=== PATIENT | female | born 1980 | race African-American/Black ===

== ENCOUNTER 2021-12-08 19:32 | Emergency (ER) | payer BC, MEDICAID, SELFPAY ==
--- NOTE | ~2021-12-08 | US_ITS ---
EXAMINATION: US OB <= 14 weeks fetus INDICATION: VB, early preg TECHNIQUE: Sonography of the pelvis was performed by transabdominal techniques. COMPARISON: None. RESULT: Uterus: - Orientation: Anteverted - Size: 11.7 x 8.5 x 6.5 cm - Myometrium: 2.9 cm fibroid. Gestation: - Intrauterine gestational sac: Single present. - Mean Sac Diameter: cm, corresponding gestational age week days - Yolk sac: Present. - Embryo: Single present. - Rake rump length: 0.9 cm, corresponding gestational age 6 weeks, 6 days -Gestational heart rate: present 127 bpm -Subgestational hematoma: Present , measuring 1.3 x 4.3 x 1.7 cm. Right ovary: -Not visualized Left ovary: - Size: 3.3 x 2.6 x 1.8 cm - Normal sonographic appearance with physiologic follicles. Corpus luteal cyst. Pelvis free fluid: None. IMPRESSION: Single, live intrauterine gestation. 1.3 x 4.3 x 1.7 cm subgestational hematoma. Estimated Gestational Age: 6 weeks, 6 days by crown rump length. EYAL by ultrasound 07/28/2022. EYAL by LMP 07/27/2022. Reviewed, dictated and finalized at location K. IMPRESSION: Single, live intrauterine gestation. 1.3 x 4.3 x 1.7 cm subgestational hematoma . Estimated Gestational Age: 6 weeks, 6 days by crown rump length. EYAL by ultras ound 07/28/2022. EYAL by LMP 07/27/2022.
[2021-12-08 19:35] VITALS: BP 150/96; PULSE 92; RESP 18; TEMP 36.8; O2SAT 100
[2021-12-08 20:25] LABS: Basophils Absolute Auto 0.1 K/mm3 (0.0-0.1); Basophils Percent Auto 0.5 % (0.2-1.2); Eosinophils Absolute Auto 0.1 K/mm3 (0-0.3); Eosinophils Percent Auto 0.8 % (0-4.4); Hematocrit 36.5 % (37.0-47.0); Hemoglobin 11.4 g/dL (12.0-15.0); Immature Granulocyte Absolute 0.04 K/mm3 (0.00-0.031); Immature Granulocyte Percent A 0.4 % (0-0.5); Lymphocytes Absolute Auto 3.06 K/mm3 (0.9-3.2); Lymphocytes Percent Auto 33.2 % (18.3-44.2); Mean Corpuscular HGB Conc 31.2 g/dl (32-36); Mean Corpuscular Hemoglobin 27.8 pg (26-34); Mean Platelet Volume 10.5 fl (7.4-10.4); Monocytes Absolute Auto 0.5 K/mm3 (0.1-0.6); Monocytes Percent Auto 5.2 % (2.6-8.5); Neutrophils Absolute Auto 5.5 K/mm3 (1.3-6.7); Neutrophils Percent Auto 59.9 % (45.5-73.1); Platelet Count Result 254 k/mm3 (150-375); White Blood Count 9.2 K/mm3 (4.5-10.0)
--- NOTE | 2021-12-08 21:03 | ED.FEMALEGU ---
HPI - Female Genitourinary General Chief complaint: Vaginal Bleeding Stated complaint: , abd cramping and spotting Time Seen by Provider: 12/08/21 19:54 History of Present Illness HPI Narrative: 41-year-old female presents here at 8 weeks by home test endorsing vaginal spotting, she did also initially have some abdominal pain, this all started about 5 hours ago. She is unsure where her blood type is other than that apparently required special ordering the last time she delivered. Denies any vaginal discharge or concern for STD at this time. Denies any other complaints. Has not seen her SPEAR FISHER or had an ultrasound yet Related Data Allergies Allergy/AdvReac Type Severity Reaction Status Date / Time Penicillins Allergy Intermediate swelling Verified 12/08/21 20:19 of mouth Review of Systems Review of Systems: CONST: No fever. HEENT: No sore throat C/V: No chest pain RESP: No cough GI: Reports abdominal pain now resolved : Vaginal spotting M/S: No joint pain. SKIN: No rash. NEURO: [No headache or focal numbness or weakness] PSYCH: [No depression] [facility] Past Medical History Medical History (Updated 12/08/21 @ 21:11 by Luh Sapp MD) No active medical problems Social History Social History (Updated 12/08/21 @ 21:09 by Luh Sapp MD) Smoking status: Never smoker Exam Narrative: EXAMINATION OF ORGAN SYSTEMS/BODY AREAS: Constitutional: Vital signs per nursing GENERAL:[No acute distress, non-toxic appearing.] HEAD: Normal with no signs of head trauma. EYES: EOMI, conjunctiva normal ENT: Hearing grossly intact LUNGS: Nonlabored breathing. HEART: [Regular rate and rhythm] ABD: [Soft], [nontender to palpation] : No bimanual tenderness or discharge or active bleeding EXT: Normal range of motion SKIN: [No rashes or lesions.] NEURO: [Alert and oriented x 3. No gross focal sensory or strength deficits.] PSYCH: Normal affect Course Vital Signs Vital signs: Vital Signs Temperature 98.3 F 12/08/21 19:35 Pulse Rate 92 12/08/21 19:35 Respiratory Rate 18 12/08/21 19:35 Blood Pressure 150/96 H 12/08/21 19:35 Pulse Oximetry 100 12/08/21 19:35 Oxygen Delivery Room Air 12/08/21 19:35 Temperature 98.3 F 12/08/21 19:35 Pulse Rate 92 12/08/21 19:35 Respiratory Rate 18 12/08/21 19:35 Blood Pressure 150/96 H 12/08/21 19:35 Pulse Oximetry 100 12/08/21 19:35 Oxygen Delivery Room Air 12/08/21 19:35 MDM - Female Genitourinary MDM Narrative Medical decision making narrative: 41-year-old female presents at around 8 weeks with vaginal bleeding and abdominal pain, vital stable, exam shows soft nontender abdomen, well-appearing patient, no pelvic tenderness on exam and scant vaginal bleeding or discharge. Concern is for possible ectopic versus threatened , I did perform a bedside ultrasound and thought I did see intrauterine with heart rate around 110, however difficult to a certain this, so I did feel a formal ultrasound was necessary. This does confirm IUP, with some subgestational hemorrhage. Rh+. Findings discussed with the patient as well as importance of follow-up with her OB. She is given strict return precautions, I feel she is stable for discharge at this time Lab Data Result diagrams: 12/08/21 20:20 Labs: Lab Results 12/08/21 12/08/21 12/08/21 Range/Units 20:17 20:20 20:20 WBC 9.2 (4.5-10.0) K/mm3 RBC 4.10 L (4.2-5.4) M/mm3 Hgb 11.4 L (12.0-15.0) g/dL Hct 36.5 L (37.0-47.0) % MCV 89.0 (80-100) fl MCH 27.8 (26-34) pg MCHC 31.2 L (32-36) g/dl RDW 16.0 H (11.5-14.5) % Plt Count 254 (150-375) k/mm3 MPV 10.5 H (7.4-10.4) fl Immature Gran % (Auto) 0.4 (0-0.5) % Neut % (Auto) 59.9 (45.5-73.1) % Lymph % (Auto) 33.2 (18.3-44.2) % [place] % (Auto) 5.2 (2.6-8.5) % Eos % (Auto) 0.8 (0-4.4) % Baso % (Auto) 0.5 (0.2-1.2)
[2021-12-08 22:13] VITALS: BP 141/101; PULSE 94; RESP 16; O2SAT 100
== END 2021-12-08 21:54 | disposition home or self-care (01) ==
PROVIDERS: Emergency Provider Emergency Medicine; PCP Obstetrics & Gynecology
DX: O20.0 Threatened abortion (principal); O09.521 Supervision of elderly multigravida, first trimester; Z3A.08 8 weeks gestation of pregnancy
CPT/HCPCS: 36415; 76801; 81025; 84702; 85025; 85461; 86880; 99284

== ENCOUNTER 2022-01-27 16:09 | Emergency (ER) | payer BC, MEDICAID, SELFPAY ==
--- NOTE | ~2022-01-27 | US_ITS ---
EXAMINATION: US OB follow up DATE: 01/27/2022 17:26 INDICATION: Vaginal bleeding. EYAL by LMP 07/27/2022. GA by EYAL 14 weeks 1 day. TECHNIQUE: Real-time ultrasound of the pelvis was performed. COMPARISON: 12/08/2021. FINDINGS: There is a single living fetus in variable presentation. The placenta is anterior. The cervix is long and closed measuring 3.5 cm without encroachment by the placenta. heart rate is 152 beats per minute (bpm). cardiac activity and movement are noted. The amniotic fluid index is subje ctively normal. Incidental note of a 4.1 cm uterine fibroid in the anterior lower uterine segment. The following biometric data were obtained: Biparietal diameter (BPD): 2.8 cm; head circumference (HC): 10.3 cm; abdominal circumference (AC): 7. 7 cm; femur length (FL): 1.4 cm. These measurements are concordant. Estimated weight is 91.1 g +/- 13.7 g, which correlates with the 34.2% percentile when 07/27/2022 is used as estimated date of delivery. As single measurements, these parameters are each equal to the following estimated gestational ages w ith ranges of +/- 2 standard deviations: BPD: 15 weeks 0 days +/- 1 weeks 1 days. HC: 14 weeks 6 days +/- 1 weeks 1 days. AC: 14 weeks 1 days +/- 1 weeks 5 days. FL: 14 weeks 0 days +/- 1 weeks 3 days. estimated gestational age based solely on measurements from this exam is 14 weeks 4 days +/- 1 weeks 0 days. IMPRESSION: 1. Single living fetus in variable presentation. 2. Estimated weight 91.1 g +/- 13.7 g. Estimated gestational age by ultrasound 14 weeks 4 days. EYAL by ultrasound 07/24/2022. 3. 4.1 cm anterior lower uterine segment fibroid. Reviewed, dictated and finalized at location K. IMPRESSION: 1. Single living fetus in variable presentation. 2. Estimated weight 91.1 g +/- 13.7 g. Estimated gestational age by ultra sound 14 weeks 4 days. EYAL by ultrasound 07/24/2022. 3. 4.1 cm anterior lower uterine segment fibroid.
[2022-01-27 16:10] VITALS: BP 137/88; PULSE 91; RESP 17; TEMP 36.5; O2SAT 100
--- NOTE | 2022-01-27 16:41 | ED.PREGNANCY ---
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 Patient is currently 14 weeks . Patient has a known 2.1cm uterine fibroid. 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 Denies dysuria, nausea vomiting diarrhea constipation. Related Data Allergies Allergy/AdvReac Type Severity Reaction Status Date / Time Penicillins Allergy Intermediate swelling Verified 01/27/22 16:14 of mouth Review of Systems Review of Systems: CONSTITUTIONAL: Denies fever, chills, or sweats. EYES: Denies visual changes, redness, or discharge. ENT: Denies rhinorrhea, congestion, sore throat, or otalgia. CARDIOVASCULAR: Denies chest pain, palpitations, or edema. RESPIRATORY: Denies cough or dyspnea. GASTROINTESTINAL: Reports lower abdominal cramping GENITOURINARY: Reports vaginal bleeding SKIN: Denies rash or itching. MUSCULOSKELETAL: Denies back pain, joint pain, or myalgia. NEUROLOGIC: Denies headache, numbness, dizziness, or weakness. PSYCHIATRIC: Denies anxiety or depression. PMFSH Past Medical History Medical History No active medical problems Social History Social History Smoking status: Never smoker Exam Narrative: GENERAL: Well-appearing, well-nourished, no physical limitations, and in no acute distress. HEAD: Normocephalic, atraumatic. EYES: Conjunctivae normal, PERRLA and EOMI. CHEST: Clear to auscultation. No respiratory distress. No wheezes rales or rhonchi. No tenderness. HEART: Regular rate and rhythm. No murmur heard. Normal peripheral pulses. ABDOMEN: Soft, nontender, nondistended, normal active bowel sounds. BACK: No CVA tenderness EXTREMITIES: Normal range of motion. No edema. No clubbing or cyanosis SKIN: Warm, dry, no rash. No noted wounds NEURO: No focal deficits. Alert and oriented x3. MAEW. CN's II-XI intact bilaterally, normal gait PSYCH: Cooperative. Normal mood and affect. Course Vital Signs Vital signs: Vital Signs Temperature 36.5 C 01/27/22 16:10 Pulse Rate 91 01/27/22 16:10 Respiratory Rate 17 01/27/22 16:10 Blood Pressure 137/88 01/27/22 16:10 Pulse Oximetry 100 01/27/22 16:10 Oxygen Delivery Room Air 01/27/22 16:10 Temperature 36.5 C 01/27/22 16:10 Pulse Rate 91 01/27/22 16:10 Respiratory Rate 17 01/27/22 16:10 Blood Pressure 137/88 01/27/22 16:10 Pulse Oximetry 100 01/27/22 16:10 Oxygen Delivery Room Air 01/27/22 16:10 MDM - OB/Uterine Contractions Lab Data Result diagrams: 01/27/22 16:49 01/27/22 16:49 Labs: Lab Results 01/27/22 01/27/22 01/27/22 Range/Units 16:46 16:49 16:49 WBC 8.7 (4.5-10.0) K/mm3 RBC 3.73 L (4.2-5.4) M/mm3 Hgb 10.6 L (12.0-15.0) g/dL Hct 33.1 L (37.0-47.0) % MCV 88.7 (80-100) fl MCH 28.4 (26-34) pg MCHC 32.0 (32-36) g/dl RDW 15.8 H (11.5-14.5) % Plt Count 260 (150-375) k/mm3 MPV 10.5 H (7.4-10.4) fl Immature Gran % (Auto) 0.1 (0-0.5) % Neut % (Auto) 65.1 (45.5-73.1) % Lymph % (Auto) 28.4 (18.3-44.2) % [place] % (Auto) 5.4 (2.6-8.5) % Eos % (Auto) 0.7 (0-4.4) % Baso % (Auto) 0.3 (0.2-1.2) % Lymph # (Auto) 2.47 (0.9-3.2) K/mm3 [place] # (Auto) 0.5 (0.1-0.6) K/mm3 Eos # (Auto) 0.1 (0-0.3) K/mm3 Baso # (Auto) 0.0 (0.0-0.1) K/mm3 Abs Immat Gran (auto) 0.01 (0.00-0.031) K/mm3 Absolute Neuts (auto) 5.7 (1.3-6.7) K/mm3 Absolute Nucleated RBC 0.0 (0.0-0.012) K/mm3 Nucleated RBC % 0.0 (0.0-0.2) % Sodium 133 L (137-145) mmol/L Potassium 3.7 (3.4-5.0) mmol/L Chloride 105 (98-107) mmol/L Carbon Dioxide 19 L
[2022-01-27 16:59] LABS: Basophils Percent Auto 0.3 % (0.2-1.2); Eosinophils Absolute Auto 0.1 K/mm3 (0-0.3); Eosinophils Percent Auto 0.7 % (0-4.4); Hematocrit 33.1 % (37.0-47.0); Hemoglobin 10.6 g/dL (12.0-15.0); Immature Granulocyte Absolute 0.01 K/mm3 (0.00-0.031); Immature Granulocyte Percent A 0.1 % (0-0.5); Lymphocytes Absolute Auto 2.47 K/mm3 (0.9-3.2); Lymphocytes Percent Auto 28.4 % (18.3-44.2); Mean Corpuscular Hemoglobin 28.4 pg (26-34); Mean Corpuscular Volume 88.7 fl (80-100); Mean Platelet Volume 10.5 fl (7.4-10.4); Monocytes Absolute Auto 0.5 K/mm3 (0.1-0.6); Monocytes Percent Auto 5.4 % (2.6-8.5); Neutrophils Absolute Auto 5.7 K/mm3 (1.3-6.7); Neutrophils Percent Auto 65.1 % (45.5-73.1); Platelet Count Result 260 k/mm3 (150-375); Red Blood Count 3.73 M/mm3 (4.2-5.4); Red Cell Distribution Width 15.8 % (11.5-14.5); White Blood Count 8.7 K/mm3 (4.5-10.0)
[2022-01-27 17:08] LABS: Alanine Aminotransferase 13 U/L (6-35); Albumin Level 3.7 g/dL (3.5-5.1); Alkaline Phosphatase 68 U/L (38-126); Anion Gap 9 mmol/L (8-16); Aspartate Amino Transferase 24 U/L (14-36); Bilirubin,Total 0.3 mg/dL (0.2-1.3); Blood Urea Nitrogen 6 mg/dL (7-17); Calcium 8.6 mg/dL (8.4-10.2); Carbon Dioxide 19 mmol/L (22-30); Chloride 105 mmol/L (98-107); Estimated CRCL calculation 144 ml/min; Estimated Glomerular Filt Rate > 60; Glucose 109 mg/dL (65-110); Potassium 3.7 mmol/L (3.4-5.0); Sodium 133 mmol/L (137-145)
[2022-01-27 17:22] LABS: Appearance Urine Clear (Clear); Bilirubin Urine Negative (Negative); Color Urine Yellow (Yellow); Glucose Urine UA Negative (Negative); Ketones Urine Negative (Negative); Leukocyte Esterase Ur Negative LEU/UL (Negative); Nitrate Urine Negative (Negative); Protein Urine Negative (Negative); Specific Grav Ur 1.025 (1.001-1.035); Urobilinogen Urine 0.2 mg/dL (<2.0)
[2022-01-27 17:26] LABS: Bacteria Urine Trace /hpf; Mucus Urine Rare /lpf; RBC Urine 0-2 /hpf (0-2); Squamous Epithelial Cell Urine Many /hpf (Few)
[2022-01-27 17:29] LABS: Add Urine Microscopic? YES; Blood Urine Trace-Intact (Negative)
[2022-01-27 18:07] VITALS: BP 134/85; PULSE 87; RESP 18; O2SAT 99
== END 2022-01-27 18:14 | disposition home or self-care (01) ==
PROVIDERS: Emergency Provider Nurse Practitioner Family; PCP Obstetrics & Gynecology
DX: O20.9 Hemorrhage in early pregnancy, unspecified (principal); O99.891 Other specified diseases and conditions complicating pregnancy; D25.9 Leiomyoma of uterus, unspecified; Z3A.14 14 weeks gestation of pregnancy
CPT/HCPCS: 36415; 76816; 80053; 81001; 84702; 85025; 99284

== ENCOUNTER 2022-02-26 17:11 | Emergency (ER) | payer BC, MEDICAID, SELFPAY ==
[2022-02-26] VITALS (10 sets, daily range): BP systolic 113–129; BP diastolic 71–88; PULSE 93–107; RESP 16–20; TEMP 36.3; O2SAT 97–100
--- NOTE | 2022-02-26 17:53 | ED.GENADULT ---
HPI - General Adult General Chief complaint: OB/Uterine Contractions Stated complaint: 18 weeks , has not felt baby move Time Seen by Provider: 02/26/22 17:39 Source: patient Mode of arrival: ambulatory Limitations: no limitations History of Present Illness HPI narrative: Patient is a 41 y/o female who presents to the ED with c/o decreased movement. Patient is approximately 18 weeks, 4 days - (2 miscarriage, 1 ectopic). Patient reports she has been feeling her son move for the last month or so, but over the last 3 days there has been decreased movement. She denies any recent trauma. Denies any abdominal pain, vaginal bleeding, nausea, vomiting, fevers. NURSE TECHNICIAN is Dr. Kang. Related Data Allergies Allergy/AdvReac Type Severity Reaction Status Date / Time Penicillins Allergy Intermediate swelling Verified 02/26/22 17:48 of mouth Review of Systems Review of Systems: CONSTITUTIONAL: Denies fever, chills, diaphoresis. CARDIOVASCULAR: Denies chest pain. RESPIRATORY: Denies dyspnea. GASTROINTESTINAL: Denies abdominal pain, nausea, vomiting. GENITOURINARY: Denies vaginal bleeding, dysuria, or hematuria. MUSCULOSKELETAL: Denies back pain. All systems reviewed & are unremarkable except as noted in HPI and below PMFSH Past Medical History Medical History History of ectopic History of spontaneous No active medical problems Surgical History Surgical History (Updated 02/26/22 @ 18:34 by Nyla Kulkarni PA-C) No pertinent past surgical history Social History Social History Smoking status: Never smoker Exam Narrative: GENERAL: Well appearing, obese, non-toxic, in no acute distress. HEAD: Normocephalic, atraumatic. NECK: Supple. No adenopathy, no masses. RESPIRATORY: Airway patent, respirations nonlabored. Clear to auscultation bilaterally, no rales, rhonchi, wheezing. CARDIOVASCULAR: Regular rate and rhythm without murmurs, rubs, or gallops. Peripheral pulses 2+ and equal bilaterally. ABDOMINAL: Soft, nontender, uterus gravid just below umbilicus, nondistended, no hepatosplenomegaly. Normoactive BS. MUSCULOSKELETAL: Moves all extremities. Strength/ROM intact without gross deformities. SKIN: Warm, dry, normal color. No rashes. NEURO: A&O X3. Speech clear. Cranial nerves II-XII grossly intact. Steady gait. No ataxic movements. PSYCHIATRIC: Appropriate mood and affect. Normal interaction. Course Vital Signs Vital signs: Vital Signs Temperature 97.3 F L 02/26/22 17:32 Pulse Rate 107 H 02/26/22 17:32 Respiratory Rate 20 02/26/22 17:32 Blood Pressure 122/77 02/26/22 17:32 Pulse Oximetry 100 02/26/22 17:32 Oxygen Delivery Room Air 02/26/22 17:32 Temperature 97.3 F L 02/26/22 17:32 Pulse Rate 93 02/26/22 20:21 Respiratory Rate 16 02/26/22 20:21 Blood Pressure 129/88 02/26/22 20:21 Pulse Oximetry 100 02/26/22 20:21 Oxygen Delivery Room Air 02/26/22 17:32 Medical Decision Making MDM Narrative Medical decision making narrative: Patient is currently 18 weeks gestation, presented to ED with report of decreased movement over the last 3 days, no other concerning signs or symptoms. Bedside heart tones easily found, measured at 145. Bedside ultrasound was utilized by myself to view fetus. Fetus very active on bedside ultrasound. Patient able to visualize movement herself. UA w/o signs of infection. Advised patient to follow with NURSE TECHNICIAN at her scheduled appointments and to call office tomorrow to notify ED visit. She was given reasons to return to the ED. VSS stable. Medical Records Medical records reviewed: Yes I reviewed the external patient's medical records. Vital Signs Vital Signs: Vital Signs Temperature 97.3 F L 02/26/22 17:32 Pulse Rate 107 H 02/26/22 17:32 Respiratory Rate 20 02/26/22 17:32
[2022-02-26 18:52] LABS: Appearance Urine Cloudy (Clear); Bilirubin Urine Negative (Negative); Blood Urine Negative (Negative); Color Urine Yellow (Yellow); Glucose Urine UA Negative (Negative); Ketones Urine Negative (Negative); Leukocyte Esterase Ur Trace LEU/UL (Negative); Nitrate Urine Negative (Negative); Protein Urine Negative (Negative); Specific Grav Ur 1.025 (1.001-1.035); Urobilinogen Urine 0.2 mg/dL (<2.0)
[2022-02-26 19:04] LABS: Bacteria Urine Trace /hpf; Mucus Urine Rare /lpf; RBC Urine 0-2 /hpf (0-2); Squamous Epithelial Cell Urine Many /hpf (Few); WBC Urine 0-3 /hpf
[2022-02-26 19:07] LABS: Add Urine Microscopic? YES
== END 2022-02-26 20:27 | disposition home or self-care (01) ==
PROVIDERS: Physician Assistant; Emergency Provider Emergency Medicine; PCP Obstetrics & Gynecology
DX: O36.8120 Decreased fetal movements, second trimester, not applicable or unspecified (principal); Z3A.18 18 weeks gestation of pregnancy
CPT/HCPCS: 81001; 99283

== ENCOUNTER 2022-03-31 16:11 | Observation (INO) | payer BC, MEDICAID, SELFPAY ==
[2022-03-31 16:55] VITALS: BP 123/73; PULSE 102
[2022-03-31 17:01] VITALS: BP 120/71; PULSE 94
[2022-03-31 17:14] VITALS: RESP 16; BMI 39.7
--- NOTE | 2022-03-31 17:15 | OBADM ---
This patient, Charis Castro, admitted to the OB room OB Post 115 for observation. Patient/family oriented to hospital policies and general routines including ID bracelet, bed and alarms, visiting hours, pain management, procedures, bathroom and other care routines, personal items, smoking policy, room service/diet, and visiting hours. Patient/Family are encouraged to report perceived risks to care and to ask questions if they do not understand what they are told or what they should do.
[2022-03-31 17:16] VITALS: BP 106/64; PULSE 98
[2022-03-31 17:31] VITALS: BP 119/84; PULSE 90
[2022-03-31 17:46] LABS: Add Urine Microscopic? YES; Appearance Urine Cloudy (Clear); Bilirubin Urine Negative (Negative); Blood Urine Negative (Negative); Color Urine Yellow (Yellow); Glucose Urine UA Negative (Negative); Ketones Urine Negative (Negative); Leukocyte Esterase Ur Trace LEU/UL (NEGATIVE); Mucus Urine Rare /lpf; Nitrate Urine Negative (Negative); Protein Urine Negative (Negative); RBC Urine 0-2 /hpf (0-2); Specific Grav Ur 1.019 (1.001-1.035); Squamous Epithelial Cell Urine Many /hpf (Few); Urobilinogen Urine Negative mg/dL (<2.0); WBC Urine 0-3 /hpf (0-3)
[2022-03-31] MEDS: ACETAMINOPHEN 500 MG TABLET 1000 MG PO (17:57)
--- NOTE | 2022-03-31 18:05 | PC.NURSE ---
[address] Benitez, orders for 1 gram of Tylenol PO. If urine results are normal discharge to home.
--- NOTE | 2022-04-03 07:39 | PM.OBTRLD ---
OB - Triage/Final Diagnosis Visit Information Comments/Additional reasons for admission: I have assessed the risk for this patient, Charis Castro, and determined that she would benefit from observation care. Evaluation Laboratory results: Laboratory Tests 03/31/22 17:22 Urine Color Yellow Urine Appearance Cloudy H Urine pH 6.0 Ur Specific [place] 1.019 Urine Protein Negative Urine Glucose (UA) Negative Urine Ketones Negative Ur Blood (Man) Negative Urine Nitrate Negative Urine Bilirubin Negative Urine Urobilinogen Negative Ur Leukocyte Esterase Trace H Urine RBC 0-2 Urine WBC 0-3 Ur Squamous Epith Cells Many H Urine Mucus Rare Final Diagnosis (1) Abdominal pain affecting : Code(s): O26.899 - Other specified related conditions, unspecified trimester; R10.9 - Unspecified abdominal pain Status: Acute
== END 2022-03-31 18:19 | disposition home or self-care (01) ==
PROVIDERS: Admitting Provider Obstetrics & Gynecology; Visit Provider Obstetrics & Gynecology
DX: O26.92 Pregnancy related conditions, unspecified, second trimester (principal); R10.9 Unspecified abdominal pain; O24.419 Gestational diabetes mellitus in pregnancy, unspecified control; O44.42 Low lying placenta NOS or without hemorrhage, second trimester; Z3A.23 23 weeks gestation of pregnancy
CPT/HCPCS: 81001; 87086; A9270; G0378; G0379

== ENCOUNTER 2022-06-25 10:04 | Outpatient (CLI) | payer BC, MEDICAID, SELFPAY ==
[2022-06-25] VITALS (11 sets, daily range): BP systolic 129–132; BP diastolic 88–89; PULSE 89–104; O2SAT 97–100
--- NOTE | ~2022-06-25 | US_ITS ---
EXAMINATION: US OB BPP wo non-stress DATE: 06/25/2022 11:49 INDICATION: Hypertension. Third trimester. TECHNIQUE: Real-time pelvic ultrasound was performed. COMPARISON: Ultrasound 01/27/2022, 12/08/2021 FINDINGS: There is a single living fetus in vertex presentation. The placenta is anterior. heart rate is 148 beats per minute (bpm). The amniotic fluid index is 9.9 cm, which is normal. Biophysical profile performed by the technologist: breathing (30 sec sustained breathing in 30 minutes): 2 out of 2 movement (3 gross body movements in 30 minutes): 2 out of 2 tone (one episode of cagckln-hluhjruva-iaixsuz limb movement): 2 out of 2 Amniotic fluid pocket (2 cm): 2 out of 2 Total score: 8 out of 8 IMPRESSION: 1. Single living fetus in vertex presentation. 2. Biophysical profile 8 out of 8. Reviewed, dictated and finalized at location A. PMENT OPERATOR/LABORER/SUPERVISOR
--- NOTE | 2022-06-25 10:15 | LDADM ---
This patient, Charis Castro, was admitted to OB Post 113 on at 10:04. Plans for labor, pain management and were discussed with patient. Patient/family oriented to hospital policies and general routines including ID bracelet, bed and alarms, visiting hours, pain management, procedures, bathroom and other care routines, personal items, smoking policy, room service/diet and guest tray routines, security routines, and visiting hours. Patient/Family are encouraged to report perceived risks to care and to ask questions if they do not understand what they are told or what they should do. See OBIX for further documentation.
[2022-06-25 10:55] LABS: Add Urine Microscopic? NO; Appearance Urine Clear (Clear); Basophils Percent Auto 0.3 % (0.2-1.2); Bilirubin Urine Negative (Negative); Blood Urine Negative (Negative); Color Urine Yellow (Yellow); Eosinophils Absolute Auto 0.1 K/mm3 (0-0.3); Eosinophils Percent Auto 0.7 % (0-4.4); Glucose Urine UA Negative (Negative); Hematocrit 29.1 % (37.0-47.0); Immature Granulocyte Absolute 0.06 K/mm3 (0.00-0.031); Immature Granulocyte Percent A 0.6 % (0-0.5); Ketones Urine Negative (Negative); Leukocyte Esterase Ur Negative LEU/UL (NEGATIVE); Lymphocytes Absolute Auto 2.65 K/mm3 (0.9-3.2); Lymphocytes Percent Auto 24.7 % (18.3-44.2); Mean Corpuscular HGB Conc 30.9 g/dl (32-36); Mean Corpuscular Hemoglobin 25.4 pg (26-34); Mean Platelet Volume 9.7 fl (7.4-10.4); Monocytes Absolute Auto 0.7 K/mm3 (0.1-0.6); Monocytes Percent Auto 6.3 % (2.6-8.5); Neutrophils Absolute Auto 7.2 K/mm3 (1.3-6.7); Neutrophils Percent Auto 67.4 % (45.5-73.1); Nitrate Urine Negative (Negative); Platelet Count Result 314 k/mm3 (150-375); Protein Urine Negative (Negative); Red Blood Count 3.55 M/mm3 (4.2-5.4); Red Cell Distribution Width 15.8 % (11.5-14.5); Urobilinogen Urine 0.2 mg/dL (<2.0); White Blood Count 10.7 K/mm3 (4.5-10.0); pH Urine 6.5 (5.0-9.0)
[2022-06-25 11:13] LABS: Alanine Aminotransferase 12 U/L (6-35); Albumin Level 3.7 g/dL (3.5-5.1); Alkaline Phosphatase 122 U/L (38-126); Anion Gap 6 mmol/L (8-16); Aspartate Amino Transferase 19 U/L (14-36); Bilirubin,Total 0.6 mg/dL (0.2-1.3); Blood Urea Nitrogen 5 mg/dL (7-17); Calcium 8.4 mg/dL (8.4-10.2); Carbon Dioxide 20 mmol/L (22-30); Chloride 106 mmol/L (98-107); Estimated Glomerular Filt Rate > 60; Glucose 87 mg/dL (65-110); Potassium 3.6 mmol/L (3.4-5.0); Sodium 132 mmol/L (137-145); Uric Acid 4.3 mg/dL (2.5-7.5)
--- NOTE | 2022-06-25 11:16 | PC.NURSE ---
pt taken to ultrasound per wheelchair.
[2022-06-25 11:22] LABS: Creatinine Urine 147.4 mg/dL; Total Protein Urine Random 10 mg/dL; Ur Ttl Prot Creatinine Ratio 0.07 mg/mg (0-0.20)
== END 2022-06-25 12:00 | disposition home or self-care (01) ==
LOC: ANHOBOP 10:09 → ANHOBPP 10:12
PROVIDERS: Visit Provider Obstetrics & Gynecology
DX: O13.9 Gestational [pregnancy-induced] hypertension without significant proteinuria, unspecified trimester (principal); Z3A.00 Weeks of gestation of pregnancy not specified
CPT/HCPCS: 36415; 59025; 76819; 80053; 81003; 82570; 84156; 84550; 85025; 87086; 99199

== ENCOUNTER 2022-07-06 09:21 | Inpatient (IN) | payer BC, MEDICAID, SELFPAY ==
[2022-07-06] VITALS (162 sets, daily range): BP systolic 87–140; BP diastolic 50–101; PULSE 85–132; TEMP 36.4–36.8; O2SAT 84–100; BMI 42.0
--- NOTE | 2022-07-06 09:21 | LDADM ---
This patient, Charis Castro, was admitted to Labor/Delivery/Recovery 102 on 07/06/22 at 09:21. Plans for labor, pain management and were discussed with patient. Patient/family oriented to hospital policies and general routines including ID bracelet, bed and alarms, visiting hours, pain management, procedures, bathroom and other care routines, personal items, smoking policy, room service/diet and guest tray routines, security routines, and visiting hours. Patient/Family are encouraged to report perceived risks to care and to ask questions if they do not understand what they are told or what they should do. See OBIX for further documentation.
[2022-07-06 10:11] LABS: Basophils Percent Auto 0.4 % (0.2-1.2); Eosinophils Absolute Auto 0.1 K/mm3 (0-0.3); Eosinophils Percent Auto 0.5 % (0-4.4); Immature Granulocyte Absolute 0.04 K/mm3 (0.00-0.031); Immature Granulocyte Percent A 0.4 % (0-0.5); Lymphocytes Percent Auto 25.6 % (18.3-44.2); Mean Corpuscular Hemoglobin 24.9 pg (26-34); Mean Corpuscular Volume 80.1 fl (80-100); Mean Platelet Volume 9.8 fl (7.4-10.4); Monocytes Absolute Auto 0.6 K/mm3 (0.1-0.6); Monocytes Percent Auto 6.2 % (2.6-8.5); Neutrophils Absolute Auto 6.5 K/mm3 (1.3-6.7); Neutrophils Percent Auto 66.9 % (45.5-73.1); Platelet Count Result 325 k/mm3 (150-375); Red Blood Count 3.62 M/mm3 (4.2-5.4); Red Cell Distribution Width 16.1 % (11.5-14.5); White Blood Count 9.8 K/mm3 (4.5-10.0)
[2022-07-06 10:24] LABS: Alanine Aminotransferase 13 U/L (6-35); Albumin Level 3.6 g/dL (3.5-5.1); Alkaline Phosphatase 128 U/L (38-126); Anion Gap 7 mmol/L (8-16); Aspartate Amino Transferase 19 U/L (14-36); Bilirubin,Total 0.5 mg/dL (0.2-1.3); Blood Urea Nitrogen 4 mg/dL (7-17); Calcium 7.8 mg/dL (8.4-10.2); Carbon Dioxide 19 mmol/L (22-30); Chloride 110 mmol/L (98-107); Estimated Glomerular Filt Rate > 60; Glucose 98 mg/dL (65-110); Potassium 3.4 mmol/L (3.4-5.0); Sodium 136 mmol/L (137-145); Uric Acid 4.5 mg/dL (2.5-7.5)
[2022-07-06 11:16] LABS: HIV 1/2 Ab P24 Ag Result Negative (Negative)
--- NOTE | 2022-07-06 12:35 | PM.IMHP ---
H&P: [facility] History of Present Illness Date/Time: 07/06/22 12:35 Chief Complaint: Painful contractions Narrative: this patient is a 41-year-old female, multiparous, at 37 weeks gestation with gestational hypertension and gestational diabetes. She has been having some painful contractions. We agreed to admit and to rupture membranes. Was considering starting low-dose Pitocin 2. She denies any headache, blurry vision, epigastric pain. She denies any chest pain or shortness of breath. She had IVs any nausea, vomiting, fever, chills. Review of Systems Review of Systems: All systems reviewed & are unremarkable except as noted in HPI and below Constitutional: Constitutional: Denies chills, Denies fatigue, Denies fever(s) and Denies weakness Eyes: Eyes: Denies blurry vision, Denies change in vision, Denies loss of peripheral vision, Denies loss of vision, Denies other visual disturbances and Denies eye pain ENT: Denies vertigo, Denies dizziness, Denies hearing loss, Denies mouth pain, Denies nasal obstruction, Denies neck mass and Denies neck pain Cardiovascular: Cardiovascular: Denies chest pain, Denies diaphoresis, Denies syncope, Denies leg edema and Denies dyspnea Respiratory: Respiratory: Denies chest congestion, Denies cough, Denies hemoptysis, Denies dyspnea and Denies wheezing Gastrointestinal: Gastrointestinal: Denies abdominal pain, Denies constipation, Denies diarrhea, Denies nausea and Denies vomiting Genitourinary: Genitourinary: Denies hematuria, Denies change in libido, Denies nocturia, Denies genital lesions, Denies flank pain and Denies urinary urgency Musculoskeletal: Musculoskeletal: Denies abnormal gait, Denies back pain, Denies myalgias, Denies arthralgias, Denies joint swelling, Denies muscle weakness and Denies neck pain Integumentary/Breasts: Skin/Breast: Denies swelling, Denies breast pain, Denies breast mass, Denies dry skin, Denies nipple discharge, Denies unusual bruising and Denies jaundice Neurologic: Denies Neuro-related abnormal movements, Denies Abnormal speech present, Denies abnormal gait, Denies behavioral changes, Denies confusion, Denies vertigo, Denies dizziness, Denies syncope, Denies loss of vision, Denies memory loss, Denies convulsions and Denies weakness Psychiatric: Psychiatric: Denies abnormal sleep pattern, Denies behavioral changes, Denies change in libido, Denies confusion, Denies depression, Denies anhedonia and Denies memory loss Endocrine: Endocrine: Reports no additional endocrine complaints, Denies change in libido and Denies fatigue Hematologic/Lymphatic: Hematologic/Lymphatic: Reports no additional hematologic/lymphatic complaints Allergic/Immunologic: Allergic/Immunologic: Reports no additional allergic/immunologic complaints and Denies wheezing PMFSH Past Medical History Medical History History of ectopic History of spontaneous No active medical problems Surgical History Surgical History (Updated 02/26/22 @ 18:34 by Nyla Kulkarni PA-C) No pertinent past surgical history Family History Family History (Updated 07/04/22 @ 15:50 by Corin Arias RN) Father Hypertension Kidney failure Congestive heart failure Other No problems noted. Mother Diabetes mellitus Social History Social History Years smoked: 10 Smoking status: Former smoker Substance use: never Lack of Transportation: No Lack of Food: Never True Current Housing: I Have Housing Concerned About Future Housing: No Difficulty Paying Gas/Electric Bills: No Difficulty Paying for Meds: No Currently Unemployed: No Education: High School Diploma/GED Difficulty w/ Childcare or Family Care: No Spiritual care concerns: No Meds Home Medications and Allergies Home Medications Medication Instructions Recorded Confirmed
[2022-07-06] MEDS: LACTATED RINGERS 1,000 ML 999 ML IV CONT (12:44)
[2022-07-06 13:20] LABS: Glucose Point of Care 85 mg/dl (65-105)
--- NOTE | 2022-07-06 13:54 | WPDANESEPP ---
Anes - Eval Pre Procedure Procedure: Labor epidural Date/Time: 07/06/22 13:54 Surgeon: Pearl Preop Diagnosis: Pain during labor Pre Op Diagnosis: Contractions Patient Data Age: 41 Gender: F Height: 1.63 m Weight: 111 kg Last Vital Signs Pulse 96 07/06/22 13:31 BP 125/75 07/06/22 13:31 Allergies Allergy/AdvReac Type Severity Reaction Status Date / Time Penicillins Allergy Intermediate swelling Verified 02/26/22 17:48 of mouth Home Medications Medication Instructions Recorded Confirmed Type prenat.vits,andrew,xkf-[id number] 1 tablet PO DAILY #30 tabs 12/08/21 07/06/22 Rx insulin NPH isoph U-100 human 100 5 unit subcut HS 07/04/22 07/04/22 History unit/mL subcutaneous suspension (Humulin N NPH U-100 Insulin (isophane susp)) Laboratory Tests 07/06/22 07/06/22 07/06/22 10:01 10:01 10:02 WBC 9.8 K/mm3 K/mm3 (4.5-10.0) RBC 3.62 M/mm3 L M/mm3 (4.2-5.4) Hgb 9.0 g/dL L g/dL (12.0-15.0) Hct 29.0 % L % (37.0-47.0) MCV 80.1 fl fl (80-100) MCH 24.9 pg L pg (26-34) MCHC 31.0 g/dl L g/dl (32-36) RDW 16.1 % H % (11.5-14.5) Plt Count 325 k/mm3 k/mm3 (150-375) MPV 9.8 fl fl (7.4-10.4) Immature Gran % (Auto) 0.4 % % (0-0.5) Neut % (Auto) 66.9 % % (45.5-73.1) Lymph % (Auto) 25.6 % % (18.3-44.2) [place] % (Auto) 6.2 % % (2.6-8.5) Eos % (Auto) 0.5 % % (0-4.4) Baso % (Auto) 0.4 % % (0.2-1.2) Lymph # (Auto) 2.50 K/mm3 K/mm3 (0.9-3.2) [place] # (Auto) 0.6 K/mm3 K/mm3 (0.1-0.6) Eos # (Auto) 0.1 K/mm3 K/mm3 (0-0.3) Baso # (Auto) 0.0 K/mm3 K/mm3 (0.0-0.1) Abs Immat Gran (auto) 0.04 K/mm3 H K/mm3 (0.00-0.031) Absolute Neuts (auto) 6.5 K/mm3 K/mm3 (1.3-6.7) Absolute Nucleated RBC 0.0 K/mm3 K/mm3 (0.0-0.012) Nucleated RBC % 0.0 % % (0.0-0.2) Sodium 136 mmol/L L mmol/L (137-145) Potassium 3.4 mmol/L mmol/L (3.4-5.0) Chloride 110 mmol/L H mmol/L (98-107) Carbon Dioxide 19 mmol/L L mmol/L (22-30) Anion Gap 7 mmol/L L mmol/L (8-16) BUN 4 mg/dL L mg/dL (7-17) Creatinine 0.50 mg/dL L mg/dL (0.7-1.0) Estim Creat Clear Calc Not Reportable Estimated GFR > 60 (59 - ) Glucose 98 mg/dL mg/dL (65-110) POC Capillary Glucose Uric Acid 4.5 mg/dL mg/dL (2.5-7.5) Calcium 7.8 mg/dL L mg/dL (8.4-10.2) Total Bilirubin 0.5 mg/dL mg/dL (0.2-1.3) AST 19 U/L U/L (14-36) ALT 13 U/L U/L (6-35) Alkaline Phosphatase 128 U/L H U/L (38-126) Total Protein 7.0 g/dL g/dL (6.3-8.2) Albumin 3.6 g/dL g/dL (3.5-5.1) RPR HIV 1&2 Ab/P24 Ag 4thGn Negative (Negative) Blood Type Antibody Screen 07/06/22 07/06/22 07/06/22 10:02 10:02 13:15 WBC RBC Hgb Hct MCV MCH MCHC RDW Plt Count MPV Immature Gran % (Auto) Neut % (Auto) Lymph % (Auto) [place] % (Auto) Eos % (Auto) Baso % (Auto) Lymph # (Auto) [place] # (Auto) Eos # (Auto) Baso # (Auto) Abs Immat Gran (auto) Absolute Neuts (auto) Absolute Nucleated RBC Nucleated RBC % Sodium Potassium Chloride Carbon Dioxide Anion Gap BUN Creatinine Estim Creat Clear Calc Estimated GFR Glucose POC Capillary Glucose 85 mg/dl mg/dl (65-105)
[2022-07-06] MEDS: OXYTOCIN 30 UNITS/NS 500 ML 30 UNITS/500 ML BAG IV CONT (14:21)
[2022-07-06] MEDS: LACTATED RINGERS 1,000 ML 125 ML IV CONT (14:21)
[2022-07-06 16:56] LABS: Rapid Plasma Reagin Non-Reactive (NonReactive)
[2022-07-06 17:24] LABS: Glucose Point of Care 84 mg/dl (65-105)
--- NOTE | 2022-07-06 17:59 | PM.OBPNVD ---
OB - PN: Subj Subjective Date/time seen: 07/06/22 17:59 No complaints, comfortable with her epidural, regular contractions, no headaches or blurry vision. No chest pain or shortness of breath. Cervix was examined, 45 cm about an hour ago. She has adequate contractions with adequate Nunica units. Not excessive. Reassuring status. Continue Pitocin 12 units, expectant management. OB - PN: Obj Data Labs 07/06/22 10:02 07/06/22 10:01 Labs: Laboratory Results - last 24 hr 07/06/22 07/06/22 07/06/22 10:01 10:01 10:02 WBC 9.8 RBC 3.62 L Hgb 9.0 L Hct 29.0 L MCV 80.1 MCH 24.9 L MCHC 31.0 L RDW 16.1 H Plt Count 325 MPV 9.8 Immature Gran % (Auto) 0.4 Neut % (Auto) 66.9 Lymph % (Auto) 25.6 [place] % (Auto) 6.2 Eos % (Auto) 0.5 Baso % (Auto) 0.4 Lymph # (Auto) 2.50 [place] # (Auto) 0.6 Eos # (Auto) 0.1 Baso # (Auto) 0.0 Abs Immat Gran (auto) 0.04 H Absolute Neuts (auto) 6.5 Absolute Nucleated RBC 0.0 Nucleated RBC % 0.0 Sodium 136 L Potassium 3.4 Chloride 110 H Carbon Dioxide 19 L Anion Gap 7 L BUN 4 L Creatinine 0.50 L Estim Creat Clear Calc Not Reportable Estimated GFR > 60 Glucose 98 POC Capillary Glucose Uric Acid 4.5 Calcium 7.8 L Total Bilirubin 0.5 AST 19 ALT 13 Alkaline Phosphatase 128 H Total Protein 7.0 Albumin 3.6 RPR HIV 1&2 Ab/P24 Ag 4thGn Negative Blood Type Antibody Screen 07/06/22 07/06/22 07/06/22 10:02 10:02 13:15 WBC RBC Hgb Hct MCV MCH MCHC RDW Plt Count MPV Immature Gran % (Auto) Neut % (Auto) Lymph % (Auto) [place] % (Auto) Eos % (Auto) Baso % (Auto) Lymph # (Auto) [place] # (Auto) Eos # (Auto) Baso # (Auto) Abs Immat Gran (auto) Absolute Neuts (auto) Absolute Nucleated RBC Nucleated RBC % Sodium Potassium Chloride Carbon Dioxide Anion Gap BUN Creatinine Estim Creat Clear Calc Estimated GFR Glucose POC Capillary Glucose 85 Uric Acid Calcium Total Bilirubin AST ALT Alkaline Phosphatase Total Protein Albumin RPR Non-reactive HIV 1&2 Ab/P24 Ag 4thGn Blood Type A Positive Antibody Screen Negative 07/06/22 17:18 WBC RBC Hgb Hct MCV MCH MCHC RDW Plt Count MPV Immature Gran % (Auto) Neut % (Auto) Lymph % (Auto) [place] % (Auto) Eos % (Auto) Baso % (Auto) Lymph # (Auto) [place] # (Auto) Eos # (Auto) Baso # (Auto) Abs Immat Gran (auto) Absolute Neuts (auto) Absolute Nucleated RBC Nucleated RBC % Sodium Potassium Chloride Carbon Dioxide Anion Gap BUN Creatinine Estim Creat Clear Calc Estimated GFR Glucose POC Capillary Glucose 84 Uric Acid Calcium Total Bilirubin AST ALT Alkaline Phosphatase Total Protein Albumin RPR HIV 1&2 Ab/P24 Ag 4thGn Blood Type Antibody Screen OB - PN A/P Assessment and Plan (1) delivery delivered: Code(s): O82 - Encounter for delivery without indication Status: Acute (2) Gestational diabetes: Code(s): O24.419 - Gestational diabetes mellitus in , unspecified control Status: Acute (3) Gestational hypertension: Code(s): O13.9 - Gestational [-induced] hypertension without significant proteinuria, unspecified trimester Status: Acute Plan 41-year-old female at 37 weeks gestation with gestational hypertension gestational diabetes. No complaints, comfortable with her epidural, regular contractions, no headaches or blurry vision. No chest pain or shortness of breath. Cervix was examined, 45 cm about an hour ago. She has adequate contractions with adequate Nunica units. Not excessive. Reassuring status. Continue Pitocin 12 units, expectant management. Time S
[2022-07-06 21:12] LABS: Glucose Point of Care 77 mg/dl (65-105)
--- NOTE | 2022-07-06 23:06 | PM.OBPRVD ---
OB - Delivery Note Procedure Procedure: Events: Gestational Diabetes and Gestational Hypertension Induction method: AROM and Per Pitocin Protocol Delivery monitor: External FHT and Internal Uterine Route of delivery: Episiotomy description: None Laceration Description: None Quantitative Blood Loss (ml): 75 Anesthesia type: Epidural [place] Baby Date of : 07/06/22 Time of : 22:56 Weeks of gestation at delivery: 37 Weight (pounds): 6 Weight (ounces): 12 Placenta delivery description: Spontaneous Cord Vessel Description: 3 Vessels score one minute: 8 score five minutes: 9
[2022-07-06] MEDS: OXYTOCIN 30 UNITS/NS 500 ML 30 UNITS/500 ML BAG 125 UNITS IV CONT (23:35)
[2022-07-07] VITALS (13 sets, daily range): BP systolic 118–146; BP diastolic 74–92; PULSE 84–115; RESP 16–18; TEMP 36.5–36.9; O2SAT 100
--- NOTE | 2022-07-07 02:30 | OBPPTRN ---
Patient transferred to post room #282 via wheelchair. Oriented to unit, room, information board, rooming in, admission packet and security measures. Patient verbalizes understanding.
[2022-07-07] MEDS: IBUPROFEN 600 MG TABLET (03:20)
[2022-07-07 04:52] LABS: Hematocrit 29.6 % (37.0-47.0)
--- NOTE | 2022-07-07 07:30 | PC.NURSE ---
Pt introductions made and plan of care discussed per post , pain management, bottle feeding, daily care activities. PT sole recipient of such instructions and no barriers to learning identified at this time. PT received such instructions this shift per one to one discussion , mom baby care guide and demonstrations. PT verbalized understanding of such care.
--- NOTE | 2022-07-07 08:21 | PM.OBPNVD ---
OB - PN: Subj Subjective Date/time seen: 07/07/22 08:21 Patient comments: no complaints, pain well controlled, incisional pain, tolerating diet and flatus present OB - PN: Obj Data Labs 07/07/22 04:15 07/06/22 10:01 Labs: Laboratory Results - last 24 hr 07/06/22 07/06/22 07/06/22 10:01 10:01 10:02 WBC 9.8 RBC 3.62 L Hgb 9.0 L Hct 29.0 L MCV 80.1 MCH 24.9 L MCHC 31.0 L RDW 16.1 H Plt Count 325 MPV 9.8 Immature Gran % (Auto) 0.4 Neut % (Auto) 66.9 Lymph % (Auto) 25.6 [place] % (Auto) 6.2 Eos % (Auto) 0.5 Baso % (Auto) 0.4 Lymph # (Auto) 2.50 [place] # (Auto) 0.6 Eos # (Auto) 0.1 Baso # (Auto) 0.0 Abs Immat Gran (auto) 0.04 H Absolute Neuts (auto) 6.5 Absolute Nucleated RBC 0.0 Nucleated RBC % 0.0 Sodium 136 L Potassium 3.4 Chloride 110 H Carbon Dioxide 19 L Anion Gap 7 L BUN 4 L Creatinine 0.50 L Estim Creat Clear Calc Not Reportable Estimated GFR > 60 Glucose 98 POC Capillary Glucose Uric Acid 4.5 Calcium 7.8 L Total Bilirubin 0.5 AST 19 ALT 13 Alkaline Phosphatase 128 H Total Protein 7.0 Albumin 3.6 RPR HIV 1&2 Ab/P24 Ag 4thGn Negative Blood Type Antibody Screen 07/06/22 07/06/22 07/06/22 10:02 10:02 13:15 WBC RBC Hgb Hct MCV MCH MCHC RDW Plt Count MPV Immature Gran % (Auto) Neut % (Auto) Lymph % (Auto) [place] % (Auto) Eos % (Auto) Baso % (Auto) Lymph # (Auto) [place] # (Auto) Eos # (Auto) Baso # (Auto) Abs Immat Gran (auto) Absolute Neuts (auto) Absolute Nucleated RBC Nucleated RBC % Sodium Potassium Chloride Carbon Dioxide Anion Gap BUN Creatinine Estim Creat Clear Calc Estimated GFR Glucose POC Capillary Glucose 85 Uric Acid Calcium Total Bilirubin AST ALT Alkaline Phosphatase Total Protein Albumin RPR Non-reactive HIV 1&2 Ab/P24 Ag 4thGn Blood Type A Positive Antibody Screen Negative 07/06/22 07/06/22 07/07/22 17:18 21:09 04:15 WBC RBC Hgb 9.0 L Hct 29.6 L MCV MCH MCHC RDW Plt Count MPV Immature Gran % (Auto) Neut % (Auto) Lymph % (Auto) [place] % (Auto) Eos % (Auto) Baso % (Auto) Lymph # (Auto) [place] # (Auto) Eos # (Auto) Baso # (Auto) Abs Immat Gran (auto) Absolute Neuts (auto) Absolute Nucleated RBC Nucleated RBC % Sodium Potassium Chloride Carbon Dioxide Anion Gap BUN Creatinine Estim Creat Clear Calc Estimated GFR Glucose POC Capillary Glucose 84 77 Uric Acid Calcium Total Bilirubin AST ALT Alkaline Phosphatase Total Protein Albumin RPR HIV 1&2 Ab/P24 Ag 4thGn Blood Type Antibody Screen OB - PN A/P Plan day: 1 Plan: routine care Comments: No problems, routine care Time Spent With Patient Time: Total time spent is greater than 50% in coordination of care (as documented) at patient's floor/unit and/or counseling patient: Exam Const: General: comfortable, no acute distress and alert Resp: Effort & Inspection: normal respiratory effort Auscultation: no crackles, no rales and no rhonchi Cardio: Rate: regular rate Heart sounds: no click, no murmurs and no rubs GI: Inspection: non-distended GI Palp: No Tenderness to palpation present (GI) Auscultation: normal bowel sounds Other: Incision - CDI Extrem: General: normal to inspection, no pedal edema and no calf tenderness
--- NOTE | 2022-07-07 08:23 | WPDANLDPN2 ---
Anes-Prog Note L&D Date/Time: 07/07/22 08:23 Comfortable throughout: labor and delivery Neuraxial method: epidural Epidural/Spinal procedure site: clean & non-tender Neuro status: Neuro function grossly intact. Cardiovascular status: normal Respiratory status: normal Airway patency: baseline Mental status: baseline Post-Op hydration status: normal Vital Signs: Last Vital Signs Temp 97.6 F 07/06/22 22:30 Pulse 105 H 07/07/22 01:46 BP 138/84 07/07/22 01:46 Pulse Ox 93 07/06/22 22:56 O2 Del Method Room Air 07/07/22 02:45 Pain score (VAS): 0 I/O: Intake & Output 07/06/22 07/07/22 07/07/22 23:59 07:59 15:59 Intake Total 500 Output Total 300 Balance 500 -300 Post-procedural complaints: none Patient feedback: Patient satisfied with anesthetic care.
[2022-07-07] MEDS: POLYSACCHARIDE IRON COMPLEX 150 MG CAPSULE PO ×2 (09:36→16:07)
[2022-07-07] MEDS: DOCUSATE SODIUM 100 MG CAPSULE PO ×2 (09:36→16:08)
[2022-07-07] MEDS: ACETAMINOPHEN 325 MG TABLET 650 MG PO ×2 (09:37→16:07)
[2022-07-07] MEDS: IBUPROFEN 600 MG TABLET PO ×2 (09:38→16:08)
--- NOTE | 2022-07-08 05:58 | PM.OBPNVD ---
OB - PN: Subj Subjective Date/time seen: 07/08/22 05:58 s/p vaginal delivery, TOLAC OB - PN: Obj Data Labs 07/07/22 04:15 07/06/22 10:01 OB - PN A/P Plan day: 2 Plan: routine care and discharge home Time Spent With Patient Time: Total time spent is greater than 50% in coordination of care (as documented) at patient's floor/unit and/or counseling patient: Review of Systems Review of Systems: All systems reviewed & are unremarkable except as noted in HPI and below
[2022-07-08 07:40] VITALS: BP 152/101; PULSE 86; RESP 24; TEMP 36.6; O2SAT 99
[2022-07-08] MEDS: POLYSACCHARIDE IRON COMPLEX 150 MG CAPSULE PO (08:34)
[2022-07-08] MEDS: ACETAMINOPHEN 325 MG TABLET 650 MG PO (08:35)
[2022-07-08] MEDS: DOCUSATE SODIUM 100 MG CAPSULE PO (08:35)
--- NOTE | 2022-07-08 08:35 | PC.NURSE ---
On 07/08/22, the student, Deepak Mitchell, provided care and completed [employer] documentation on this patient. I have reviewed the student's documentation and agree with the findings. Informed Robert Heath RN of BP findings. Informed nursing program manager to recheck BP.
[2022-07-08 08:45] VITALS: BP 141/89
--- NOTE | 2022-07-10 07:47 | PM.OBDSVD ---
DS: Admitting Diagnosis Discharge Date 07/08/22 Admitting Diagnosis section DS: Discharge Diagnosis Discharge Diagnosis (1) delivery delivered: Code(s): O82 - Encounter for delivery without indication Status: Acute OB - DS: Summary OB Procedures : None OB Procedures Intrapartum: OB Procedures: : None Time Spent with Patient Time attestation: Total time spent providing and/or coordinating discharge services: Discharge Plan Discharge Attending physician on discharge: Lotus Arenas Consulting providers: Lotus Arenas Discharging Clinician: Torrey Kang Patient Disposition: Home, Self-Care Activity: pelvic rest Diet: regular Discharge Instructions: Education: Mom and Baby Guide Given to: Mother Follow-Up: Call your delivering provider's office for an appointment to be seen in: 4 Weeks Mom and baby [facility] the follow-up appointment. Appointment Date/Time: July 09, 2022 at 9:00 am What to expect at your follow-up visit: Blood Pressure Check Physical Assessment Call [phone] if you are unable to keep your appointment time. BREAST CARE: * Wear a snug supportive bra. * For engorgement discomfort: Breast Feeding: * Apply warm moist washcloths * Express milk as needed to relieve engorgement * Wear loose clothing Bottle Feeding: * May apply ice packs * For sore nipples: * Identify correct latch-on * Apply warm moist washcloths before and after nursing * Air dry nipples after nursing * May apply Lansinoh cream to nipples EPISIOTOMY/PERINEAL CARE: * Until bleeding stops, use your gregory bottle after urinating * Change your pad frequently throughout the day * You may take sitz baths several times a day (fill your bathtub with warm water and soak for 20 minutes.) Do NOT bathe in the water * No tub baths until seen by your physician - You may shower ACTIVITY: * Rest as much as possible. * Do not exercise or lift anything heavier than your baby (such as laundry or other children.) * Avoid stairs or driving as much as possible. * Do not put anything into the vagina. No douching, tampons, or sexual activity until seen by physician. NOTIFY PHYSICIAN IF YOU HAVE ANY QUESTIONS OR IF ANY OF THE FOLLOWING SYMPTOMS OCCUR: * If your episiotomy or incision becomes red, swollen, or more painful than what you have experienced in the hospital. * If your vaginal bleeding becomes foul smelling. * If your vaginal bleeding becomes more heavy than a period or if your bleeding changes from pink to bright red. However, you may pass an occasional walnut-sized clot once or twice for the first week . * If you experience a sharp, shooting pain in you calves. * If you discover a hard, reddened area on your breast or if you experience flu-like symptoms. DIET: * Eat regular, well-balanced meals. * Drink plenty of fluids daily. If , drink to thirst. Patient Instructions: Antibiotic Form, Caring for Your Baby (DC) Stand Alone Forms: General Discharge Information Follow-up/Referrals: Torrey Kang MD [Physician] - 4 Weeks Discharge Medications: New ibuprofen 600 mg Tablet 600 mg PO Q6H PRN (Reason: Cramping) Qty: 30 0RF Continued prenat.vits,andrew,xki-cwgu-obrho Tablet 1 tablet PO DAILY Qty: 30 0RF Discontinued Humulin N NPH U-100 Insulin 100 unit/mL suspension 5 unit SUBCUT HS Date of admission: 07/06/22 09:21 Primary Care Provider: UNKNOWN,DOCTOR Admitting Provider: Torrey Kang Attending physician on admission: Torrey Kang Condition: Stable
== END 2022-07-08 11:45 | disposition home or self-care (01) | DRG 807 ==
LOC: ANHLDR 09:39 → ANHOB2 07-07 02:12
PROVIDERS: Admitting Provider Obstetrics & Gynecology; Visit Provider Obstetrics & Gynecology
DX: O13.4 Gestational [pregnancy-induced] hypertension without significant proteinuria, complicating childbirth (principal); Z37.0 Single live birth; Z3A.37 37 weeks gestation of pregnancy; O69.81X0 Labor and delivery complicated by cord around neck, without compression, not applicable or unspecified; O24.429 Gestational diabetes mellitus in childbirth, unspecified control
CPT/HCPCS: 36415; 80053; 82948; 84550; 85014; 85018; 85025; 86592; 86703; 86850; 86900; 86901; A9270; G0432; J2590; J2795; J7120

== ENCOUNTER 2024-10-11 00:14 | Day surgery (SDC) | payer BC, MEDICAID, SELFPAY ==
[2024-10-04 15:23] VITALS: BMI 39.0
--- NOTE | 2024-10-04 15:29 | PC.NURSE ---
Report to the Outpatient Waiting Room, entrance under the green pavilion located off [facility], at time _0700_ on date _[id number]_. Planned Procedure Time: _0900_.? Time changes happen often and if your time is changed the preop area will call you the afternoon before. - You and your visitor will be asked to self-screen and do not enter if you have any COVID symptoms. Please call surgeon if you need to reschedule. - A mask is optional within the hospital at this time. Patients may have clear liquids (water, carbonated beverages, clear teas, apple juice) until 3 hours prior to surgery with a maximum of 20 ounces. - No food from midnight until time of surgery and no smoking, or chewing tobacco (or any form of nicotine). No chewing gum, candy or mints. Take only the following medications with a SIP of water on the morning of surgery: ___None____ DO NOT STOP ANY OF YOUR OTHER PRESCRIPTION MEDICATIONS PRIOR TO SURGERY EXCEPT THE FOLLOWING Hold all vitamins and supplements for 3 days per anesthesiologist. Medications to discontinue per physician Date to take last dose Please no make-up, nail upper sorbian, hairspray, perfume, deodorant, or body powder the day of surgery.? No jewelry (including any body piercings) or valuables the day of surgery, leave them at home.? Please take a shower or bath the night before, or the morning of, surgery with an antibacterial soap.? Wear comfortable, loose fitting clothing.? - Jewelry must be removed prior to entering the operating room.? Rings and piercings that are not removed may be cut off. - The hospital will not accept responsibility for valuables.? - Please leave all valuables, including medications, at home the day of surgery. If you are going home after surgery, a licensed garbage collector driver must drive you home.? - NO public transportation without another adult if you receive anesthesia. - We recommend that an adult stay with you for 24 hours following discharge. - We also recommend that you do not drive, make important decision, drink alcoholic beverages, or take any drugs that were not prescribed by your health care provider for at least 24 hours after your discharge time. Follow any additional instructions given to you from your surgeon. Telephone instructions given to __Yaele__and asked if any additional questions and then verbalized understanding. Patient advised to call surgeon office or pre surgery nurse liaison [phone] if any additional questions.
[2024-10-11] VITALS (9 sets, daily range): BP systolic 106–155; BP diastolic 67–116; PULSE 70–103; RESP 14–22; TEMP 36.2–36.4; O2SAT 97–100; BMI 38.3
--- OUTSIDE RECORDS SUMMARY | 2024-10-11 00:21 | XMS_ITS | Data Portability ---
Author Organization [facility] [place] Address [address] [place] [address] Assessment Encounter Date Assessment Date Assessment LastModified by Organization Details LastModified Time 02/19/2023 02/19/2023 Annual gynecological exam performed. Patient will come back in a year unless there are new symptoms. Not available 02/19/2023 09:58:43 Plan of Treatment Reminders Order Date Submit Date Provider Last Modified By Organization Details Last Modified Time Details Appointments SURG Salpingec bony 2024 09:00A Abby KANG MD Not available Not available Not available SURG POST OP 2024 01:15P Abby KANG MD Not available Not available Not available Lab hbcab (hepatiti s B core Ab) igm, serum 2024 025 [facility] (Lab), [address] [place], [address], 08/24/2024 20:56:23 HBsAg (hepatiti s B surface Ag), serum 2024 025 [facility] (Lab), [address] [place], [address], 08/24/2024 20:56:22 hepatitis C virus Ab, serum 2024 025 [facility] (Lab), [address] [place], [address], 08/24/2024 20:56:23 HIV 1+2 AB + HIV 1 p24 Ag, qualitati ve immunoass ay, serum 2024 025 [facility] (Lab), [address], [place], [address], 08/24/2024 20:56:23 RPR (rapid plasma reagin), serum 2024 025 [facility] (Lab), [address], [place], [address], 08/24/2024 20:56:23 pap, IG + HR HPV - HPV regardles s but if HPV is positive need subtyping 16,18/45 add sti g/ch/tric h 2024 025 [facility] (Lab), [address], [place], [address], 08/29/2024 09:44:29 CBC w/ auto diff 2022 023 [facility] (Lab), [address], [place], [address], 02/20/2023 04:48:42 CMP, serum or plasma 2022 023 [facility] (Lab), [address], [place], [address], 02/20/2023 04:48:43 lipid panel, blood 2022 023 [facility] (Lab), [address], [place], [address], 02/20/2023 04:48:43 TSH, serum or plasma 2022 023 [facility] (Lab), [address], [place], [address], 02/20/2023 04:48:44 vitamin D, 25-hydrox y, total, serum 2022 023 [facility] (Lab), [address], [place], [address], 02/20/2023 04:48:44 Referral None recorded. Procedures None recorded. Surgeries salpingec bony, laparosco pic (SURG) 2024 025 [id number], [address], [place], [address], 09/08/2024 10:12:14 salpingec bony, laparosco pic (SURG) 2023 024 [email or web address] [facility], [address], [place], [address], 01/12/2024 10:16:24 Imaging MAMMO, screening , digital, bilateral [id number], [address], [place] [address], [place], [address], 09/12/2024 15:40:49 Medication Orders metronida zole 500 mg tablet 2023 025 [facility] [id number] [facility], [address] [place] [address], [address], 08/23/2024 10:33:20 fluconazo le 150 mg tablet 2023 025 [facility] [id number], [address], 08/23/2024 10:33:17 Patient TargetsNo targets recorded. Patient InstructionsNo instructions recorded. Reason for Referral None Reported. Results Created Date Observation Date Name Description Value Unit Range Abnormal Flag Note LastModifiedBy Organization Detail LastModifiedTime 02/20/2002/19/2023 CBC W/DIF F WBC 5.9 10'3/ uL 3.6-10 .2 Not Available [facility] (Lab) [address], [place], [address], 02/20/2023 04:48:42 02/20/2002/19/2023 CBC W/DIF F RBC 4.43 10'6/ uL (based on docume nted legal sex) 4.10-5 .30 Not Available [facility] (Lab) [address], [place], [address], 02/20/2023 04:48:42 02/20/2002/19/2023 CBC W/DIF F HGB 11.8 g/dL (based on docume nted legal sex) 11.9-1 5.8 low Not Available [facility] (Lab) [address], [place], [address], 02/20/2023 04:48:42 02/20/2002/19/2023 CBC W/DIF F HCT 38.7 % (based on docume nted legal sex) 37.4-4 8.3 Not Available [facility] (Lab) [address], [place], [address], 02/20/2023 04:48:42 02/20/2002/19/2023 CBC W/DIF F MCV 87.4 fL 82.0-9 9.0 Not Available [facility] (Lab) [address], [place], [address], 02/20/2023 04:48:42 02/20/2002/19/2023 CBC W/DIF F MCH 26.6 pg 27.0-3 3.0 low Not Available [facility] (Lab) [address], [place], [address], 02/20/2023 04:48:42 02/20/2002/19/2023 CBC W/DIF F MCHC 30.5 g/dL 32.0-3 6.0 low Not Available [facility] (Lab) [address], [place], [address], 02/20/2023 04:48:42 02/20/2002/19/2023 CBC W/DIF F RDW 16.5 % 11.0-1 5.0 high Not Available [facility] (Lab) [address] [facility], [place], [address], 02/20/2023 04:48:42 02/20/2002/19/2023 CBC W/DIF F plt 290 10'3/ uL 150-45 0 Not Available [facility] (Lab) [address] [facility], [place], [address], 02/20/2023 04:48:42 02/20/2002/19/2023 CBC W/DIF F MPV 11.1 fL 9.8-12 .7 Not Available [facility] (Lab) [address] [facility], [place], [address], 02/20/2023 04:48:42 02/20/2002/19/2023 CBC W/DIF F NRBC's 0.0 % 0 Not Available [facility] (Lab) [address] [facility], [place], [address], 02/20/2023 04:48:42 02/20/2002/19/2023 CBC W/DIF F absolute NRBCs 0.0 10'3/ uL 0 Not Available [facility] (Lab) [address] [facility], [place], [address], 02/20/2023 04:48:42 02/20/2002/19/2023 CBC W/DIF F neutrophils 59.2 % 37.0-7 2.0 Not Available [facility] (Lab) [address] [facility], [place], [address], 02/20/2023 04:48:42 02/20/2002/19/2023 CBC W/DIF F lymphocytes 35.0 % 16.0-4 8.0 Not Available [facility] (Lab) [address] [facility], [place], [address], 02/20/2023 04:48:42 02/20/2002/19/2023 CBC W/DIF F monocytes 4.1 % 4.0-14 .0 Not Available [facility] (Lab) [address] [facility], [place], [address], 02/20/2023 04:48:42 02/20/20 23 02/19/2023 CBC W/DIF F eosinophils 0.8 % 0.0-9. 0 Not Available [facility] (Lab) [address] [facility], [place], [address], 02/20/2023 04:48:42 02/20/20 23 02/19/2023 CBC W/DIF F basophils 0.7 % 0.0-2. 0 Not Available [facility] (Lab) [address] [facility], [place], [address], 02/20/2023 04:48:42 02/20/20 23 02/19/2023 CBC W/DIF F immature granulocytes 0.2 % no define d refere nce range Not Available [facility] (Lab) [address] [facility], [place], [address], 02/20/2023 04:48:42 02/20/20 23 02/19/2023 CBC W/DIF F absolute neutrophils 3.5 10'3/ uL 1.1-6. 0 Not Available [facility] (Lab) [address] [facility], [place], [address], 02/20/2023 04:48:42 02/20/20 23 02/19/2023 CBC W/DIF F absolute lymphocytes 2.1 10'3/ uL 0.7-3. 4 Not Available [facility] (Lab) [address] [facility], [place], [address], 02/20/2023 04:48:42 02/20/20 23 02/19/2023 CBC W/DIF F absolute monocytes 0.2 10'3/ uL 0.3-1. 0 low Not Available [facility] (Lab) [address] [facility], [place], [address], 02/20/2023 04:48:42 02/20/20 23 02/19/2023 CBC W/DIF F absolute eosinophils 0.1 10'3/ uL 0.0-0. 6 Not Available [facility] (Lab) [address] [facility], [place], [address], 02/20/2023 04:48:42 02/20/20 23 02/19/2023 CBC W/DIF F absolute basophils 0.0 10'3/ uL 0.0-0. 1 Not Available [facility] (Lab) [address] [facility], [place], [address], 02/20/2023 04:48:42 02/20/2002/19/2023 CBC W/DIF F absolute immature granulocytes 0.0 10'3/ uL 0.00-0 .10 023 2:11 AM: P indic ates parti al resul ts on a panel have been relea sed. Addit ional resul ts will follo w. 023 2:11 AM: This resul t has been final verif ied. No addit ional or rosenberg ed resul ts are expec haile. Not Available [facility] (Lab) [address] [facility], [place], [address], 02/20/2023 04:48:42 02/20/2002/19/2023 LIPID PANEL ,AMA (LDL- CALC) total cholesterol 243 mg/dL 0-199 high Not Available [facility] (Lab) [address] [facility], [place], [address], 02/20/2023 04:48:43 02/20/2002/19/2023 LIPID PANEL ,AMA (LDL- CALC) triglyceride s 445 mg/dL 0.00-1 50.00 high NCEP Refer ence Value s for Trigl yceri melissa: Emily l: <150 mg/dL Borde rline High: 150 - 199 mg/dL High: 200 - 499 mg/dL Very High: >/= 500 mg/dL Not Available [facility] (Lab) [address] [facility], [place], [address], 02/20/2023 04:48:43 02/20/20 23 02/19/2023 LIPID PANEL ,AMA (LDL- CALC) HDL cholesterol 54 mg/dL >40 Not Available [facility] (Lab) [address] [facility] [address] [facility], [place], [address], 02/20/2023 04:48:43 02/20/20 23 02/19/2023 LIPID PANEL ,AMA (LDL- CALC) LDL cholesterol . Trigl yceri melissa >=400 ; Unabl e to calcu late LDL. Cutof f value s recom shahbaz d by the Natio nal [place] stero l Educa tion Progr am: KAREN ABLE: Helena stero l <200 mg/dL LDL <100 mg/dL BORDE RLINE : [place] stero l 200-2 39 mg/dL LDL 101-1 59 mg/dL HIGHE R RISK: Hel[place] stero l >240 mg/dL LDL >160 mg/dL , HDL <40 mg/dL Not Available [facility] (Lab) [address] [facility], [place], [address], 02/20/2023 04:48:43 02/20/2002/19/2023 LIPID PANEL ,AMA (LDL- CALC) non-HDL cholesterol 189 mg/dL no refere nce range A reaso nable goal for non-H DL helena stero l is one that is 30 mg/dL highe r than the LDL helena stero l goal. Not Available [facility] (Lab) [address] [facility], [place], [address], 02/20/2023 04:48:43 02/20/20 23 02/19/2023 LIPID PANEL ,AMA (LDL- CALC) chol/HDL ratio 4.5 . 0.0-5. 0 On October 13, 2022, [facility] labor melo rosenberg ed the equat ion for calcu latin g estim ated low-d ensit y lipop rotei n-cho leste rol (LDL- C) from the Percy callaway equat ion to the Millie garcia/Daniella lujan equat ion. This new equat ion is only valid for lipid panel s with trigl yceri melissa < 400 mg/dL . Studi es have demon strat ed that this new equat ion will impro ve the accur acy of LDL-C , espec ially in scena jasmine when LDL-C felice ntrat ions are relat ively low (< 100 mg/dL ), trigl yceri melissa are eleva haile, or patie nt is non-f astin g. Refer ences : - Millie garcia, Stanley Jones, Kelvin Doyle , Elke lopez, Marvin Caballero, Marvin hamilton, Ej Michael. Jael roblero , and Sammy Lanza . 2013. Comp ariso n of a Novel Metho d vs the Fried cesia Equat ion for Estim ating Low-D ensit y Lipop rotei n [place] stero l Level s from the Stand georgina Lipid Profi le. IRISH: The Journ al of the Ameri can Medic al Assoc iatio n 310 (19): 2060- . - Bre ballesteros V, Hyacinth J, Afia ar A, Sonya M, Hamzah e R, Connie ballesteros E, Jael roblero RS, Pool SR, Millie garcia SS. Fast ing Versu s Nonfa sting and Low-D ensit y Lipop rotei n [place] stero l Accur acy. Circu latio n. 2017Jun 22;137 (1):1 0-19. Not Available [facility] (Lab) [address] , [place], [address], 02/20/2023 04:48:43 02/20/20 23 02/19/2023 CMP(C OMPRE HENSI VE METAB OLIC PANEL ) sodium 137 mmol/ L 133-14 6 Not Available [facility] (Lab) [address], [place], [address], 02/20/2023 04:48:43 02/20/20 23 02/19/2023 CMP(C OMPRE HENSI VE METAB OLIC PANEL ) potassium 3.8 mmol/ L 3.5-5. 1 Not Available [facility] (Lab) [address] [facility] [address], [place], [address], 02/20/2023 04:48:43 02/20/20 23 02/19/2023 CMP(C OMPRE HENSI VE METAB OLIC PANEL ) chloride 107 mmol/ L 98-107 Not Available [facility] (Lab) [address] [facility], [place], [address], 02/20/2023 04:48:43 02/20/20 23 02/19/2023 CMP(C OMPRE HENSI VE METAB OLIC PANEL ) carbon dioxide 21 mmol/ L 21-31 Not Available [facility] (Lab) [address] [facility], [place], [address], 02/20/2023 04:48:43 02/20/20 23 02/19/2023 CMP(C OMPRE HENSI VE METAB OLIC PANEL ) anion gap 9 mmol/ L 4-13 Not Available [facility] (Lab) [address] [facility] [address], [place], [address], 02/20/2023 04:48:43 02/20/20 23 02/19/2023 CMP(C OMPRE HENSI VE METAB OLIC PANEL ) blood urea nitrogen 14 mg/dL 7-25 Not Available [facility] (Lab) [address], [place], [address], 02/20/2023 04:48:43 02/20/20 23 02/19/2023 CMP(C OMPRE HENSI VE METAB OLIC PANEL ) creatinine 0.87 mg/dL 0.60-1 .30 Not Available [facility] (Lab) [address] [facility] [address], [place], [address], 02/20/2023 04:48:43 02/20/20 23 02/19/2023 CMP(C OMPRE HENSI VE METAB OLIC PANEL ) egfrcr (CKD-epi 2020) 85 mL/mi n/1.7 3_m2 >=60 Not Available [facility] (Lab) [address] [facility] [address], [place], [address], 02/20/2023 04:48:43 02/20/20 23 02/19/2023 CMP(C OMPRE HENSI VE METAB OLIC PANEL ) calcium 8.8 mg/dL 8.3-10 .5 Not Available [facility] (Lab) [address], [place], [address], 02/20/2023 04:48:43 02/20/20 23 02/19/2023 CMP(C OMPRE HENSI VE METAB OLIC PANEL ) glucose 137 mg/dL 70-100 high Not Available [facility] (Lab) [address], [place], [address], 02/20/2023 04:48:43 02/20/20 23 02/19/2023 CMP(C OMPRE HENSI VE METAB OLIC PANEL ) protein, total 7.3 g/dL 6.4-8. 3 Not Available [facility] (Lab) [address], [place], [address], 02/20/2023 04:48:43 02/20/2002/19/2023 CMP(C OMPRE HENSI VE METAB OLIC PANEL ) albumin 4.1 g/dL 3.5-5. 0 Not Available [facility] (Lab) [address], [place], [address], 02/20/2023 04:48:43 02/20/2002/19/2023 CMP(C OMPRE HENSI VE METAB OLIC PANEL ) ALT 8 units /L 9-43 low Not Available [facility] (Lab) [address] [facility] [address], [place], [address], 02/20/2023 04:48:43 02/20/2002/19/2023 CMP(C OMPRE HENSI VE METAB OLIC PANEL ) alkaline phosphatase 88 units /L 34-104 Not Available [facility] (Lab) [address], [place], [address], 02/20/2023 04:48:43 02/20/20 23 02/19/2023 CMP(C OMPRE HENSI VE METAB OLIC PANEL ) AST 14 units /L 13-39 Not Available [facility] (Lab) [address], [place], [address], 02/20/2023 04:48:43 02/20/20 23 02/19/2023 CMP(C OMPRE HENSI VE METAB OLIC PANEL ) bilirubin, total 0.4 mg/dL 0.2-1. 2 Not Available [facility] (Lab) [address], [place], [address], 02/20/2023 04:48:43 02/20/2002/19/2023 TSH, REFLE X FREE T4 TSH 1.74 uIU/m L 0.30-5 .33 Not Available [facility] (Lab) [address] [facility] [address], [place], [address], 02/20/2023 04:48:44 02/20/20 23 02/19/2023 VITAM IN D, 25-OH (TOTA L D2/D3 ) vitamin D, 25-hydroxy, total <7.0 NG/mL 30.0-1 00.0 low M-Res ult verif ied by repea t gricelda sis Sugge stive of Defic iency : <20 ng/mL Sugge stive of Insuf ficie ncy: 20-29 ng/mL Sugge stive of Suffi cienc y: 30-10 0 ng/mL Sugge stive of Toxic ity: >150 ng/mL Not Available [facility] (Lab) [address] [facility] [address], [place], [address], 02/20/2023 04:48:44 02/20/2002/19/2023 IMAGE GUIDE D PAP AND HPV REGAR DLESS image guided Pap, HPV regardless of Pap result SEE RESULT S BELOW CASE REPOR T: Cytol ogy Gynec ologi vishal Repor t Case: [id number] Autho marcos g Provi gregor: Kyle Kang MD Colle cted: 02/19 1322 Order ing Locat ion: [place] [facility] Recei celsa: 02/20 0035 First Scree n: Yasmin Boateng ret, CT Rescr een: Silvia Short , CT Speci men: Scree justice Pap - Image d, Cervi x STATE MENT OF ADEQU ACY: Satis facto ry for evalu ation Trans forma tion zone compo nent absen t The absen ce of an endoc ervic al compo nent was confi rmed by an addit ional scree ner. FINAL DIAGN OSIS: Negat blaine for Intra epith elial Lesio n or Lizzeth campbell (NIL) . Shift in yoel sugge stive of bacte rial vagin osis. Elect manolo mitchell antony d by Silvia Short , KRISH on 023 at 11:56 AM ----- ----- ----- ----- ----- ----- ----- ----- ----- ----- ----- ----- ----- ----- ----- ----- ----- ---- HPV RESUL TS: HPV mRNA E6/E7 : No HPV mRNA Detec haile NOTE: This high risk HPV mRNA assay detec ts fourt een high- risk HPV types (16, 18, 31, 33, 35, 39, 45, 51, 52, 56, 58, 59, 66, 68) witho ut diffe renti ation . COMME NT: Slide scree ilia manua lly due to rejec tion by the Thinp rep Imagi ng Syste m. CLINI VISHAL INFOR MATIO N: Menst rual Statu s: LMP (if appli cable ): Clini vishal Histo ry/Pr eviou s Pap: Type of Neopl vladimir (if appli cable ): Signi fican t Clini vishal Findi ngs: Other Histo ry: Hormo laura (if appli cable ): PAP EDUCA ALESIA L NOTE: The Pap Test is a scree justice test with an inher ent false negat blaine rate. Liqui d-bas ed sampl ing may decre ase, but will not elimi ilda, false negat blaine resul ts. A negat blaine resul t does not precl ude the prese nce and/o r devel opmen t of disea se, since the prese nce of abnor mal cells in the sampl e depen ds on the locat ion of the lesio n and sampl ing techn ique. Librado nued regul ar scree justice is the best metho d of cance r preve ntion . If repor haile cytol ogic findi ng do not corre late with physi vishal and/o r histo rical findi ngs, furth er inves tigat ion is recom shahbaz d, as clini luke martin nted. Not Available [facility] (Lab) [address], [place], [address], 02/24/2023 12:59:39 12/09/19 24 12/09/2023 VAGIN ITIS/ VAGIN OSIS, DNA PROBE mel sp. detection, direct probe Negati ve negati ve Not Available [facility] (Lab) [address] [place], [address], 12/10/2023 11:41:57 12/09/19 24 12/09/2023 VAGIN ITIS/ VAGIN OSIS, DNA PROBE gardnerella vag. detection, direct probe Positi ve negati ve abnormal Not Available [facility] (Lab) [address] [place], [address], 12/10/2023 11:41:57 12/09/19 24 12/09/2023 VAGIN ITIS/ VAGIN OSIS, DNA PROBE trichomonas vag. detection, direct probe Negati ve negati ve Not Available [facility] (Lab) [address] [place], [address], 12/10/2023 11:41:57 08/24/19 25 08/23/2024 HEPAT ITIS B SURFA CE ANTIG EN hepatitis B surface antigen Non-re active non-re active This assay was perfo rmed using [employer] ratio n reage nts and test kits. Value s obtai ilia with other assay metho ds or kits canno t be used inter rosenberg eably . Not Available [facility] (Lab) [address], [place], [address], 08/24/2024 20:56:22 08/24/19 25 08/23/2024 HIV 1/2 ANTIG EN/AN TIBOD Y, REFLE X CONFI RMATI ON HIV antigen/anti body Nonrea ctive nonrea ctive HIV-1 antig en and HIV-1 /HIV- 2 antib odies were not detec haile. No labor atory evide nce of HIV infec tion. Not Available [facility] (Lab) [address], [place], [address], 08/24/2024 20:56:23 08/24/19 25 08/23/2024 HEPAT ITIS C ANTIB DANIEL SCREE N, REFLE X TO CONFI RMATI ON hepatitis C antibody Non-re active non-re active Antib odies to HCV Not Detec haile, does not exclu de the possi bilit y of expos ure to HCV. Not Available [facility] (Lab) [address], [place], [address], 08/24/2024 20:56:23 08/24/19 25 08/23/2024 RPR SCREE N, REFLE X TITER /CONF IRMAT ION RPR qualitative Nonrea ctive nonrea ctive Not Available [facility] (Lab) [address] [place], [address], 08/24/2024 20:56:23 08/24/19 25 08/23/2024 HEPAT ITIS B CORE, IGM hepatitis B core IgM antibody Non-re active non-re active IgM anti- HBc not detec haile. Does not exclu de the possi bilit y of expos ure to or infec tion with HBV. Test Perfo rmed by: [facility] [address], [place] [address] Not Available [facility] (Lab) [address], [place], [address], 08/24/2024 20:56:23 08/24/19 25 08/23/2024 IMAGE GUIDE D PAP AND HPV REGAR DLESS image guided Pap, HPV regardless of Pap result SEE RESULT S BELOW CASE REPOR T: Cytol ogy Gynec ologi vishal Repor t Case: [id number] Autho marcos cathy Provi gregor: Bing Wheeler, FAUSTINO Colle cted: 08/23 1023 Order ing Locat ion: [place] Patho log[facility] Recei celsa: 08/24 0946 First Scree n: Xiomara Lanza, CT Rescr een: Silvia Short , CT Speci men: Maribeth rendon Pap - Image d, Cervi x STATE MENT OF ADEQU ACY: Satis facto ry for evalu ation Trans forma tion zone compo nent absen t The absen ce of an endoc ervic al compo nent was confi rmed by an addit ional scree ner. ----- ----- ----- ----- ----- ----- ----- ----- ----- ----- ----- ----- ----- ----- ----- ----- ----- ---- FINAL DIAGN OSIS: Negat blaine for Intra epith elial Chandler garcia or Lizzeth campbell ([facility]) . Shift in yoel sugge stive of bacte rial vagin osis. Elect manolo giordano by Silvia garza, CT on 2024 at 0839 CDT ----- ----- ----- ----- ----- ----- ----- ----- ----- ----- ----- ----- ----- ----- ----- ----- ----- ---- HPV RESUL TS: HPV mRNA E6/E7 : No HPV mRNA Detec haile NOTE: This high risk HPV mRNA assay detec ts fourt een high- risk HPV types (16, 18, 31, 33, 35, 39, 45, 51, 52, 56, 58, 59, 66, 68) witho ut diffe renti ation . COMME NT: Note: Slide scree ilia manua lly due to rejec tion by Thinp rep Imagi ng Syste m CLINI VISHAL INFOR MATIO N: Menst rual Statu s: LMP (if appli cable ): Clini vishal Histo ry/Pr eviou s Pap: Type of Neopl vladimir (if appli cable ): Signi fican t Clini vishal Findi ngs: Other Histo ry: Hormo laura (if appli cable ): PAP EDUCA ALESIA L NOTE: The Pap Test is a scree justice test with an inher ent false negat blaine rate. Liqui d-bas ed sampl ing may decre ase, but will not elimi ilda, false negat blaine resul ts. A negat blaine resul t does not precl ude the prese nce and/o r devel opmen t of disea se, since the prese nce of abnor mal cells in the sampl e depen ds on the locat ion of the lesio n and sampl ing techn ique. Librado nued regul ar scree justice is the best metho d of cance r preve ntion . If repor haile cytol ogic findi ng do not corre late with physi vishal and/o r histo rical findi ngs, furth er inves tigat ion is recom shahbaz d, as clini luke warra nted. Not Available [facility] (Lab) [address], [place], [address], 08/29/2024 09:44:29 08/24/19 25 08/23/2024 TRICH OMONA S VAGIN NANCI (RRNA ) trichomonas vaginalis ribosomal RNA (rrna) Negati ve negati ve Not Available [facility] (Lab) [address] [place], [address], 08/29/2024 09:44:30 08/24/19 25 08/23/2024 CT/GC (LUCY) , THINP REP VIAL chlamydia trachomatis, PCR Negati ve negati ve Not Available [facility] (Lab) [address], [place], [address], 08/29/2024 09:44:31 08/24/19 25 08/23/2024 CT/GC (LUCY) , THINP REP VIAL neisseria gonorrhoeae, PCR Negati ve negati ve Not Available [facility] (Lab) [address], [place], [address], 08/29/2024 09:44:31 Result Notes None recorded. Problems Name Problem SNOMED Code Status Onset Date Resolution Date Notes Provider Name and Address Organization Details Recorded Time [facility] [id number] 25032 Completed 201807/12/2020 Encounte r for suprvsn of normal pregnanc y, second trimeste r;Practi ce ID: [id number] Zeny Benitez MD [address], [place], [address], [facility] 11:22:31 Pelvic and perineal pain [id number] Completed 201807/12/2020 Pelvic and perineal pain;Pra ctice ID: [id number] Zeny Benitez MD [address], [place], [address], [facility] 11:22:40 Uterine size for dates discrepa ncy Completed 201807/12/2020 Uterine size-mickie e discrepa ncy, third trimeste r;Practi ce ID: [id number] Zeny Benitez MD [address], [place], [address], [facility] 11:23:37 Gestatio n period, 35 weeks [id number] Completed 201807/12/2020 35 weeks gestatio n of pregnanc y;Practi ce ID: 0001 Zeny Benitez MD [address], [place], [address], [facility] 11:21:57 Non-prot einuric hyperten stephanie of pregnanc y [id number] Completed 201807/12/2020 Gestatnl htn without signific ant protein, comp childbir th;Pract ice ID: 0001 Zeny Benitez MD [address], [place], [address], [facility] 11:22:28 Uterine scar from previous surgery affectin g pregnanc y [id number] Completed 201807/12/2020 Matern care for low transver se scar from prev del;Prac francesco ID: 0001 Zeny Benitez MD [address], [place], [address], [facility] 11:23:33 Single live [id number] Completed 201807/12/2020 Single live ;Pr actice ID: 0001 Zeny Benitez MD [address], [place], [address], [facility] 11:22:58 Gestatio n period, 37 weeks [id number] Completed 201807/12/2020 37 weeks gestatio n of pregnanc y;Practi ce ID: 0001 Zeny Benitez MD [address], [place], [address], [facility] 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 11:23:05 High risk pregnanc y [id number] Completed 201707/12/2020 Suprvsn of preg w history of ect or molar preg, first tri;Prac francesco ID: 0001 Zeny Benitez MD [address], [place], [address], [facility] 11:22:04 Gestatio n less than 9 weeks [id number] Completed 201707/12/2020 Less than 8 weeks gestatio n of pregnanc y;Practi ce ID: 0001 Zeny Benitez MD [address], [place], [address], [facility] 11:21:43 Pregnanc y detectio n examinat ion Completed 201807/12/2020 Encounte r for pregnanc y test, result positive ;Practic e ID: 0001 Zeny Benitez MD [address], [place], [address], [facility] 11:22:45 Antenata l screenin g Completed 201807/12/2020 Encounte r for antenata l screenin g for nuchal transluc ency;Pra ctice ID: 0001 Zeny Benitez MD [address], [place], [address], [facility] 11:21:08 Spotting per vagina in pregnanc y [id number] Completed 201807/12/2020 Spotting complica ting pregnanc y, second trimeste r;Practi ce ID: 0001 Zeny Benitez MD [address], [place], [address], [facility] 11:23:16 Gestatio n period, 15 weeks [id number] Completed 201807/12/2020 15 weeks gestatio n of pregnanc y;Practi ce ID: 0001 Zeny Benitez MD [address], [place], [address], [facility] 11:21:45 Complica tion of pregnanc y, childbir th and/or puerperi [id number] Completed 201807/12/2020 Oth diseases and conditio ns compl preg/chl dbrth;Pr actice ID: 0001 Zeny Benitez MD [address], [place], [address], [facility] 11:23:30 Gestatio n period, 16 weeks [id number] Completed 201807/12/2020 16 weeks gestatio n of pregnanc y;Practi ce ID: 0001 Zeny Benitez MD [address], [place], [address], [facility] 11:21:48 Finding of contents of cervix [id number] Completed 201807/12/2020 Weeks of gestatio n of pregnanc y not specifie d;Practi ce ID: 0001 Zeny Benitez MD [address], [place], [address], [facility] 11:21:40 Gestatio n period, 17 weeks [id number] Completed 201807/12/2020 17 weeks gestatio n of pregnanc y;Practi ce ID: 0001 Zeny Benitez MD [address], [place], [address], [facility] 11:21:50 Antenata l screenin g for malforma tion Completed 201807/12/2020 Encounte r for antenata l screenin g for malforma tions;Pr actice ID: 0001 Zeny Benitez MD [address], [place], [address], [facility] 11:21:[address] Concept Completed 201807/12/2020 Maternal care for oth problems , second trimeste r, unsp;Pra ctice ID: 0001 Zeny Benitez MD [address], [place], [address], [facility] 1 11:23:01 Gestatio n period, 24 weeks [id number] Completed 201807/12/2020 24 weeks gestatio n of pregnanc y;Practi ce ID: 0001 Zeny Benitez MD [address], [place], [address], [facility] 11:21:53 Gestatio n period, 29 weeks [id number] Completed 201807/12/2020 29 weeks gestatio n of pregnanc y;Practi ce ID: 0001 Zeny Benitez MD [address], [place], [address], [facility] 11:21:55 Screenin g for malignan t neoplasm of cervix Completed 201307/12/2020 Screenin g for malignan t neoplasm s of the cervix;R ecorded Elsewher e: No Locat ion: [facility] S ource: EHR Electrical Cad Technician audrey: N Practi ce ID: 0001 John lable Time: 11:30:00 AM MD [address], [place], [address], [facility] 11:22:55 Evaluati on finding Completed 201707/12/2020 Unsp abnormal cytolog findings in specmn from cervix uteri;Re corded Elsewher e: No Locat ion: [facility] S ource: EHR Electrical Cad Technician audrey: N Practi ce ID: 0001 John lable Time: 08:45:00 AM MD [address], [place], [address], [facility] 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 Mild dysplasi a of cervix;R ecorded Elsewher e: No [facility]at ion[facility] S ource: EHR Electrical Cad Technician audrey: N Practi ce ID: 0001 John lable Time: 10:15:00 AM Not Available [facility] 0 16:50:51 Threaten ed miscarri age [id number] Completed 201607/12/2020 Threaten ed ;Recorde d Elsewher e: No Locat ion: [facility] S ource: EHR Electrical Cad Technician audrey: N Ritika ce ID: 0001 John lable Time: 12:22:00 PM Zeny Benitez MD [address], [place], [address], [facility] 1 11:23:20 Vaginiti s and vulvovag initis Completed 201307/12/2020 Vaginiti s;Record ed Elsewher e: No Locat ion: [facility] S ource: EHR Electrical Cad Technician audrey: N Ritika ce ID: 0001 John lable Time: 09:15:00 AM Zeny Benitez MD [address], [place], [address], [facility] 1 11:23:42 Clinical finding Completed 201607/12/2020 Ectopic pregnanc y NOS;Zev rded Elsewher e: No Locat ion: [facility] S ource: EHR Electrical Cad Technician audrey: N Ritika ce ID: 0001 John lable Time: 12:00:00 PM Zeny Benitez MD [address], [place], [address], [facility] 1 11:21:19 Insuffic ient weight gain of pregnanc y [id number] Completed 201807/12/2020 Low weight gain in pregnanc y, third trimeste r;Record ed Elsewher e: No Locat ion: [facility] S ource: EHR Electrical Cad Technician audrey: N Practi ce ID: 0001 John lable Time: 10:15:00 AM Zeny Benitez MD [address], [place], [address], [facility] 1 11:22:17 Pregnanc y test negative [id number] Completed 201407/12/2020 Negative Pregnanc y Test;Pra ctice ID: 0001 Zeny Benitez MD [address], [place], [address], [facility] 1 11:22:48 Venereal disease screenin g Completed 201307/12/2020 Screenin g examinat ion for venereal disease; Practice ID: 0001 Zeny Benitez MD [address], [place], [address], [facility] 1 11:23:49 Speciali zed medical examinat ion Completed 201307/12/2020 Other specifie d chlamydi al diseases ;Practic e ID: 0001 Zeny Benitez MD [address], [place], [address], [facility] 1 11:23:13 Speciali zed medical examinat ion Completed 201307/12/2020 Routine gynecolo gical examinat ion;Prac francesco ID: 0001 Zeny Benitez MD [address], [place], [address], [facility] 1 11:23:10 Tobacco dependen ce syndrome 03285917 Active 2012 Tobacco Dependen ce Disorder ;Practic e ID: 0001 Not Available [facility] 0 16:50:53 Ill-defi ilia intestin al infectio n Completed 201207/12/2020 No Show Fee;Prac francesco ID: 0001 Zeny Benitez MD [address], [place], [address], [facility] [address] 11:22:[address] Concept Completed 201507/12/2020 Encounte r for gynecolo gical examinat ion (general ) (routine ) with abnormal findings ;Recorde d Elsewher e: No Locat ion: [facility] S ource: EHR Electrical Cad Technician audrey: N Practi ce ID: 0001 John lable Time: 11:30:00 AM Zeny Benitez MD [address], [place], [address], [facility] 1 11:23:03 Infectio n screenin g Completed 201707/12/2020 Encounte r for screenin g for oth infec/pa rastc diseases ;Recorde d Elsewher e: No Locat ion: [facility] S ource: EHR Electrical Cad Technician audrey: N Practi ce ID: 0001 John lable Time: 09:30:00 AM Zeny Benitez MD [address], [place], [address], [facility] 1 11:22:15 Hyperten sive disorder 78224127 Active 2018 Hyperten stephanie;Rec orded Elsewher e: No Locat ion: [facility] S ource: EHR Electrical Cad Technician audrey: N Practi ce ID: 0001 John lable Time: 01:30:00 PM Not Available [facility] 0 16:50:54 Acute vaginiti s 36952448 Completed 201507/12/2020 Acute vaginiti s;Record ed Elsewher e: No Locat ion: [facility] S ource: EHR Electrical Cad Technician audrey: N Practi ce ID: 0001 John lable Time: 11:30:00 AM MD [address], [place], [address], [facility] 11:21:03 Routine antenata l care Completed 201007/12/2020 Supervis ion of other normal pregnanc y;Practi ce ID: 0001 Zeny Benitez MD [address], [place], [address], [facility] 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 11:22:21 Postpart um care Completed 201107/12/2020 Routine postpart um follow-u p;Practi ce ID: 0001 Zeny Benitez MD [address], [place], [address], [facility] 11:22:43 Excessiv e growth affectin g manageme nt of mother [id number] Completed 201007/12/2020 GROWTH LARGE LGA;Prac francesco ID: 0001 Zeny Benitez MD [address], [place], [address], [facility] 11:21:33 Oligohyd ramnios with antenata l problem [id number] Completed 201007/12/2020 Oligohyd ramnios, antepart um;Pract ice ID: 0001 Zeny Benitez MD [address], [place], [address], [facility] 11:22:38 Lochia finding Completed 201807/12/2020 Encounte r for routine postpart um follow-u p;Record ed Elsewher e: No Locat ion: [facility] S ource: EHR Electrical Cad Technician audrey: N Practi ce ID: 0001 John lable Time: 01:30:00 PM Zeny Benitez MD [address], [place], [address], [facility] 11:22:23 Vaginola bial hernia Completed 201507/12/2020 Other specifie d noninfla mmatory disorder s of vagina;R ecorded Elsewher e: No Locat ion: [facility] S ource: EHR Electrical Cad Technician audrey: N Practi ce ID: 0001 John lable Time: 11:30:00 AM Zeny Benitez MD [address], [place], [address], [facility] 11:23:46 Syphilis test finding [id number] Completed 201707/12/2020 Encntr screen for infectio ns w sexl mode of transmis s;Record ed Elsewher e: No Locat ion: [facility] S ource: EHR Electrical Cad Technician audrey: N Delti ce ID: 0001 John lable Time: 09:30:00 AM Zeny Benitez MD [address], [place], [address], [facility] 11:23:[address] Concept Completed 201807/12/2020 Encntr for suprvsn of normal preg, unsp, second trimeste r;Record ed Elsewher e: No Locat ion: [facility] S ource: EHR Electrical Cad Technician audrey: N Practi ce ID: 0001 John lable Time: 11:15:00 AM Zeny Benitez MD [address], [place], [address], [facility] 11:23:08 Educatio n Completed 201807/12/2020 Encounte r for other general counseli ng and advice on contrace ption;Re corded Elsewher e: No [facility]at [facility] S ource: EHR Electrical Cad Technician audrey: N Practi ce ID: 0001 John lable Time: 01:30:00 PM Zeny Benitez MD [address], [place], [address], [facility] 11:21:25 Cytologi c finding [id number] Completed 201407/12/2020 Cervical Pap smear w/ LGSIL;Re corded Elsewher e: No Locat ion: [facility] S ource: EHR Electrical Cad Technician audrey: N Practi ce ID: 0001 John lable Time: 11:30:00 AM Zeny Benitez MD [address], [place], [address], [facility] 11:21:22 Uterine size for dates discrepa ncy 116654968 Completed 201007/12/2020 UTERINE SIZE MELISSA-ANTE PAR;Prac francesco ID: 0001 Zeny Benitez MD [address], [place], [address], [facility] 11:23:39 Pregnanc y test positive [id number] Completed 201007/12/2020 Positive Pregnanc y Test;Pra ctice ID: 0001 Zeny Benitez MD [address], [place], [address], [facility] 11:22:50 Obesity 305684927 Completed 201307/12/2020 Obesity; Recorded Elsewher e: No Locat ion: [facility] S ource: EHR Electrical Cad Technician audrey: N Practi ce ID: 0001 John lable Time: 11:30:[address] AM MD [address], [place], [address], [facility] 11:22:36 Tubal pregnanc y 49273924 Completed 201607/12/2020 Right tubal pregnanc y without intraute rine pregnanc y;Practi ce ID: 0001 Zeny Benitez MD [address], [place], [address], [facility] 1 11:23:24 anatomy study Completed 201007/12/2020 [facility] ANATMC SURVEY;P ractice ID: 0001 Zeny Benitez MD [address], [place], [address], [facility] 1 11:21:37 Adult health examinat ion Completed 201407/12/2020 Routine general medical examinat ion at a health care facility ;Practic e ID: 0001 Zeny Benitez MD [address], [place], [address], [facility] 1 11:21:05 Pregnanc y 18880812 Completed 202110/05/2022 Jazlyn Preston null, [facility] 3 16:38:11 Pregnanc y-induce d hyperten stephanie 02940031 Completed h/o in 3rd trimeste r of last pregnanc y Jazlyn Preston null, [facility] 3 16:38:08 delivery - delivere d [id number] Completed vaginal after in her last pregnanc y. Jazlyn Fieldle null, [facility] 3 16:38:08 Placenta previa partiali s 86519931 Completed 04/22/2022 Harry Kang MD [address], [place], [address], [facility] 2 11:54:44 Umbilica l cord around neck 821321527 Completed X2 at 20 weeks, MFM consult 04/22 Jazlyn arvizu, [facility] 3 16:38:08 Placenta circumva llata 2516788 Completed Level II on 04/22 showed no circumva llate placents Jazlyn Preston null, [facility] 3 16:38:08 Gestatio nal diabetes mellitus 12886854 Completed BS QID, antenata l testing. Starting 5u NPH @ HS 06/02/22 Jazlyn Preston null, [facility] 3 16:38:08 Uterine leiomyom a 13274994 Completed Lower uterine segment Jazlyn Preston null, [facility] 3 16:38:08 Female steriliz ation Completed Jazlyn Preston null, [facility] 3 16:38:08 Notes:Level II u/s & OV 04/22 0900 Problem Notes None recorded. Procedures Surgical History Date Name Laterality Status Provider Name and Address Organization Details Recorded Time 02/20/20 23 Date of Last Pap Smear completed Laura Valle [facility] 12/09/2023 14:28:24 03/02/20 18 Colposcopy completed Maryam Farris [facility] 02/13/2022 11:30:08 03/02/20 18 Colposcopy completed Maryam Farris [facility] 02/13/2022 11:35:14 05/10/20 17 right salpingectomy completed Soha Valenzuela [facility] 08/21/2022 16:37:05 03/31/20 16 Colposcopy completed Maryam Farris [facility] 02/13/2022 11:35:18 09/17/19 16 Colposcopy completed Maryam Farris [facility] 02/13/2022 11:35:22 02/24/20 13 Colposcopy completed Maryam Farris [facility] 02/13/2022 11:35:29 05/27/20 11 section completed Maryam Farris [facility] 02/13/2022 11:35:45 Imaging Results None recorded. Procedure Notes None recorded. Medical Equipment None Reported. Allergies Allergen ID Allergen Name Allergen Category Reaction Reaction Severity Criticality Documentation Date Start Date Code Code System Note Provider Name and Address Organization Details Recorded Time 2911 Product containin g penicilli n (product) medicatio n swelling Not available Not available 05/28/2020 03892 8001 SNOMED roof of mouth and tongu e bridgett [facility] 09:59:36 Medications Name Sig Start Date Stop Date Status Note LastModified by Organization Details LastModified Time fluconazo le 150 mg tablet TAKE 1 TABLET BY ORAL ROUTE NOW, REPEAT IN 7 DAYS IF NEEDED 08/23 completed Not Available Not Available Not Available terconazo le 0.8 % vaginal cream insert 1 applicat orful by vaginal route at bedtime for 3 days 10/17 completed Prescrib ed Elsewher e: No Locat ion: [facility] odify By: man garza DateTime : 10/14/19 19 09:54:31 AM Not Available Not Available Not Available Zithromax Z-Charles 250 mg tablet take 2 tablet by oral route every day for 1 day then 1 tablet (250 mg) by oral route once daily for 4 days 08/26 completed Prescrib ed Elsewher e: No Locat ion: [facility] odify By: bcevans dent DateTime : 08/23/19 16 03:09:47 PM Not Available Not Available Not Available clindamyc in HCl 150 mg capsule TAKE 1 CAPSULE BY MOUTH EVERY 6 HOURS UNTIL FINISHED 09/23 completed Not Available Not Available Not Available metronida zole 500 mg tablet TAKE 1 TABLET BY MOUTH TWICE A DAY FOR 7 DAYS 08/23 completed Not Available Not Available Not Available Macrobid 100 mg capsule take 1 capsule (100MG) by oral route every 12 hours with food 06/25 completed Prescrib ed Elsewher e: No Locat ion: [facility] odify By: thu dent DateTime : 06/10/20 11 08:51:29 AM Not Available Not Available Not Available Metrogel Vaginal 0.75 % (37.5 mg/5 gram) Insert 1 applicat orful every day by vaginal route at bedtime for 5 days. 07/12 completed Not Available Not Available Not Available hydrocodo ne 7.5 mg-acetam inophen 325 mg tablet TAKE 1 TABLET BY MOUTH EVERY 6 HOURS NEEDED FOR PAIN 09/23 completed Not Available Not Available Not Available cephalexi n 500 mg capsule TAKE 1 CAPSULE BY MOUTH TWICE A DAY FOR 10 DAYS 09/23 completed Not Available Not Available Not Available promethaz ine 25 mg tablet TAKE 1 TABLET BY MOUTH EVERY 4 HOURS active Not Available Not Available No t Available Humulin N NPH U-100 Insulin (isophane susp) 100 unit/mL subcutane ous 02/19 completed Not Available Not Available Not Available ibuprofen 600 mg tablet TAKE 1 TABLET BY MOUTH EVERY 8 HOURS 09/05 completed Not Available Not Available Not Available Vitamin D2 1,250 mcg (50,000 unit) capsule take 1 capsule (08694MS ITS) by oral route every week 06/25 completed Prescrib ed Elsewher e: No Locat ion: [facility] odify By: thu dent DateTime : 03/24/20 11 01:45:00 PM Not Available Not Available Not Available Bactrim DS 800 mg-160 mg tablet take 1 tablet by oral route every 12 hours 05/18 completed Prescrib ed Elsewher e: No Locat ion: [facility] odify By: elizabeth couch DateTime : 05/10/20 17 03:45:00 PM Not Available Not Available Not Available Zithromax 500 mg tablet take 2 tablet (1000MG) by oral route once 08/15 completed Prescrib ed Elsewher e: No Locat ion: [facility] odify By: terrie dent DateTime : 07/11/19 13 03:46:20 PM Not Available Not Available Not Available Fany 0.35 mg tablet Take 1 tablet every day by oral route. 07/12 completed Not Available Not Available Not Available June (21) 1.5 mg-30 mcg tablet TAKE 1 TABLET BY ORAL ROUTE EVERY DAY 03/31 completed Prescrib ed Elsewher e: No [facility] By: elizabeth wonger DateTime : 08/13/19 16 11:30:00 AM Not Available Not Available Not Available Loestrin 24 Fe 1 mg-20 mcg (24)/75 mg (4) tablet take 1 tablet by oral route every day 08/15 completed Prescrib ed Elsewher e: No Locat ion: [facility] odify By: terrie dent DateTime : 06/25/19 12 09:00:00 AM Not Available Not Available Not Available 28 mg iron-800 mcg tablet TAKE 1 TABLET BY MOUTH EVERY DAY 02/19 completed Not Available Not Available Not Available OneTouch Verio test strips USE TO TEST FOUR TIMES A DAY. FASTING AND 1 HOUR POST MEALS 02/19 completed Not Available Not Available Not Available BD Insulin Syringe Ultra-Fin e 0.3 mL 31 gauge x 11/03 completed Not Available Not Available Not Available OneTouch Delica Plus Lancet 30 gauge USE TO TEST FOUR TIMES A DAY. FASTING AND 1 HOUR POST MEALS 02/19 completed Not Available Not Available Not Available Slynd 4 mg (28) tablet TAKE 1 TABLET BY MOUTH EVERY DAY 12/15 completed Not Available Not Available Not Available OneTouch Verio Reflect Meter USE METER TO TEST FOUR TIMES A DAY. FASTING AND 1 HOUR POST MEALS 02/19 completed Not Available Not Available Not Available COVID-19 test specimen collectio n TEST DIRECTED TODAY 09/05 completed Not Available Not Available Not Available Vitals Date Recorded Body height Body mass index (BMI) Body weight Systolic blood pressure Diastolic blood pressure Provider Name and Address Organization Details Last Updated DateTime 02/19/2023 162.56 cm 39.7 kg/m2 102303.8 4 g 147 mm[Hg] 97 mm[Hg] Soha Valenzuela [facility] 3 09:59:06 Date Recorded Body height Body mass index (BMI) Body weight Systolic blood pressure Diastolic blood pressure Provider Name and Address Organization Details Last Updated DateTime 09/24/2023 162.56 cm 40.5 kg/m2 368395.8 g 139 mm[Hg] 91 mm[Hg] Alis Edward [facility] 4 10:02:02 Date Recorded Body height Body mass index (BMI) Body weight Systolic blood pressure Diastolic blood pressure Provider Name and Address Organization Details Last Updated DateTime 12/09/2023 162.56 cm 39.5 kg/m2 247081.2 5 g 141 mm[Hg] 91 mm[Hg] Laura Valle [facility] 4 14:26:06 Date Recorded Body height Body mass index (BMI) Body weight Systolic blood pressure Diastolic blood pressure Systolic blood pressure Diastolic blood pressure Provider Name and Address Organization Details Last Updated DateTime 5 162.56 cm 39 kg/m2 959971. 47 g 147 mm[Hg] 99 mm[Hg] 142 mm[Hg] 94 mm[Hg] GHASSAN Hilario [facility] 5 11:03:06 Date Recorded Body height Body mass index (BMI) Body weight Systolic blood pressure Diastolic blood pressure Provider Name and Address Organization Details Last Updated DateTime 09/04/2024 162.56 cm 39.1 kg/m2 613438.0 6 g 149 mm[Hg] 101 mm[Hg] Shania Rick [facility] 5 10:23:54 Social History Question Answer Notes LastModified by Organizat ion Details LastModified Time Tobacco Smoking Status Current Every [facility] 12/15/2021 12:02:37 Do You Have An Advance Directive? No Information not available 12/15/2021 What Is Your Level Of Alcohol Consumption? None Information not available 12/15/2021 If You Are , What Was Your Level Of Alcohol Consumption Prior To ? Occasional Information not available 12/15/2021 Are You Blind Or Do You Have Difficulty Seeing? No Information not available 12/15/2021 What Is Your Level Of Caffeine Consumption? Heavy Information not available 12/15/2021 How Much Tobacco Do You Chew? None Information not available 12/15/2021 In The 14 Days Before Symptom Onset, Have You Had Close Contact With A Laboratory-confir med COVID-19 While That Case Was Ill? No Information not available 12/15/2021 In The 14 Days Before Symptom Onset, Have You Had Close Contact With A Person Who Is Under Investigation For COVID-19 While That Person Was Ill? No Information not available 12/15/2021 Have You Been To An Area Known To Be High Risk For COVID-19? No Information not available 12/15/2021 Are You Deaf Or Do You Have Serious Difficulty Hearing? No Information not available 12/15/2021 What Type Of Diet Are You Following? REGULAR Information not available 12/15/2021 What Is The Highest Grade Or Level Of School You Have Completed Or The Highest Degree You Have Received? 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 No Information not available 12/15/2021 What Is Your Current Pack Years? 10packyears Information not available 12/15/2021 Have You Ever Been Counseled For Unhealthy Alcohol Use? No Information not available 12/15/2021 Do You Use Protection During Sex? No Information not available 12/15/2021 Do You Use Your Seat Belt Or Car Seat Routinely? Yes Information not available 12/15/2021 Do You Have Smoke And Carbon Monoxide Detectors In Your Home? Yes Information not available 12/15/2021 At What Age Did You Start Smoking Tobacco? 37 Information not available 07/12/2020 How Much Tobacco Do You Smoke? No Information not available 12/15/2021 Do You Feel Stressed (tense, Restless, Nervous, Or Anxious, Or Unable To Sleep At Night)? [id number] Information not available 12/15/2021 Do You Use Any Illicit Or Recreational Drugs? No Information not available 07/12/2020 Do You Use Sunscreen Routinely? No Information not available 12/15/2021 Has Tobacco Cessation Counseling Been Provided? No Information not available 12/15/2021 How Many Years Have You Smoked Tobacco? 2 Information not available 07/12/2020 Have You Used IV Drugs? No Information not available 12/15/2021 Do You Or Have You Ever Used Any Other Forms Of Tobacco Or Nicotine? No Information not available 12/15/2021 Sex: Unknown Functional Status Question Answer Note LastModified by Organizat ion Details LastModified Time Do you have difficulty walking or climbing stairs? No [email or web address] Information not available 02/13/2022 Are you able to walk? YESWOREST Information not available 12/15/2021 Are you able to care for yourself? Yes [email or web address] Information not available 02/13/2022 Do you have difficulty dressing or bathing? No Information not available 02/13/2022 What is your exercise level? Moderate Information not available 12/15/2021 Mental Status None recorded. Family History Relationship Description Onset Age of this Age Resolved Age Notes LastModified by Organization Details LastModified Time Father Heart disease Not available 2021 12:03:13 Father Hypertensive disorder Not available 2021 12:03:23 Mother Diabetes mellitus Not available 2021 12:03:30 Medical History Condition Response Other Y Blood Transfusion N Dermatologic Disorders N Gestational Diabetes N Anxiety Disorder N Autoimmune disease N Arthritis N Polyps N Infertility N Acid Reflux (GERD) N Cancer N Varicosities N Stroke N Neurologic/Epilepsy N Fibromyalgia N Headaches N Kidney Disease N Heart Problems N Kidney or Bladder Problems N Eating Disorder N Art (IVF or FET) N Hepatitis/Liver Disease N No Past Medical History N Urinary Tract Infection N Asthma N Trauma/Violence N Thrombophilias N Allergies (Food, seasonal, environmental ) N Breast Cancer N Drug/Latex Allergies/Reactions Y Lung Disease N Defects or Inherited Disease N Breast Problem N Hematologic disorders N Anesthesia Complications N History of STI Y Deep Vein Thrombosis N Polycystic ovary syndrome N History of abnormal pap Y Endometriosis N High Cholesterol N Thyroid Problems N GI Problems N Anemia N Psychiatric Illness N Ovarian Cancer N Diabetes N Pulmonary (TB, Asthma) N Eczema N Abuse/Domestic Violence N Depression/ depression N Heart Disease N Pre-Eclampsia N Hypertension N Osteoporosis N Gynecological History Statement/Question Response Flow Moderate Date of LMP 08/31/2024 N Was last menstrual period normal Y STIs/STDs Y BCPs Desired Control Method Sterilizati on Abnormal Pap Yes On BCP's at Conception? Y HPV Vaccine N Colposcopy 03/02/2018 Duration of Flow (days) 4 Current Control Method Withdrawal Age at First Child 26 Are cycles usually normal Y Frequency of Cycle (Q days) 28 Sexually Active? Y Menses Monthly Y Age of first menstrual cycle 8 Date of Last Pap Smear 02/19/2023 Sexual Problems? N LMP Approximate N Obstetrics History GPAL:G 7 P 4 0 3 4 Type Value Full Term 4 Spontaneous 2 Living 4 Ectopics 1 Total 7 Past Encounters Encounter ID Performer Location Encounter Start Date Encounter Closed Date Diagnosis/Indication Diagnosis SNOMED-CT Code Diagnosis ICD10 Code Diagnosis Note [id number] [facility] [address] [address] 05/28/2020 12:00:08 05/28/2020 12:47:03 Vaginitis 25906219 N76.0 Will await results before sending treatment. VCG's given to [facility]. Time spent in visit is a total of 15 mins with at least 50% of visit consisting of counseling and review of plan of care. [id number] Zeny Benitez MD [place] [address] [address] 07/12/2020 10:59:06 07/14/2020 15:50:34 Elevated blood-pressure reading without diagnosis of hypertension 941570441 R03.0 Initial pr escription of oral contraception 489476748 Z30.011 Female sterilization 608 72853 Z30.2 [id number] Zeny Benitez MD [place] [address],[place] [address] 09/05/2021 12:55:09 09/05/2021 13:40:24 Gynecologic examination 78995690 Z01.419 Surveillan ce of oral contraception 932361542 Z30.41 [id number] Natalya Whitney [place] [address],[place] [address] 12/15/2021 11:31:38 12/15/2021 12:01:51 [id number] Harry Kang MD [place] [address],[place] [address] 12/15/2021 11:54:15 12/16/2021 14:34:01 Nausea and vomiting 87639106 R11.2 Amenorrhea 18223169 N91. 2 This patient is a 41-year-ol d female who presents for amenorrhea . She is multiparou s. She has a positive test today. We discussed her ultrasound results. She has an 8 week gestation. She is continent of her last menstrual period dates. We talked about laboratory evaluation and genetic screening ultrasound . We talked about early care. Talked about precaution s during that included a discussion of exercise, diet, medication s. She will begin care during next visit. [id number] Ramona Sawyer [place] [address],[place] [address] 01/15/2022 09:28:29 01/15/2022 14:12:29 screening 412108224 Z36.82 [id number] Harry Kang MD [place] [address],[place] [address] 01/15/2022 09:37:09 01/15/2022 11:17:11 Routine care 742355839 Z34.82 [id number] [facility] [address],[place] [address] 02/13/2022 11:11:56 02/13/2022 11:59:20 Routine care [id number] Z34.92 [id number] Ramona Sawyer [place] [address],[place] [address] 03/19/2022 09:56:25 03/19/2022 11:38:30 screening 847538059 Z36.3 [id number] Harry Kang MD [place] [address],[place] [address] 03/19/2022 09:56:44 03/19/2022 11:51:34 Routine care 987066798 Z34.82 [id number] Harry Kang MD [place] [address],[place] [address] 04/16/2022 10:45:21 04/16/2022 11:40:31 Routine care 532264446 Z34.82 [id number] Harry Kang MD [place] [address],[place] [address] 05/07/2022 09:31:22 05/07/2022 10:56:35 Routine care 038492389 Z34.82 [id number] Radha López [place] [address],[place] [address] 05/19/2022 18:09:48 05/19/2022 18:21:27 Gestational diabetes mellitus class A1 94238320 O24.410 Diet teaching completed with pt over the phone. Went over ideal ranges for FBS and pp BS. Went over carb counting and carb ranges for each meal/snack . Gave ideas for foods to eat for meals/snac ks. Discussed drink options and to avoid soda and juice. Pt states she drinks a lot of Pepsi and Go Tea, pt will cut out Pepsi and will look up total carbs of the tea to see if she is able to drink this or not. Pt states her meal times are off and she doesn't eat breakfast much. Pt wakes for the day around 0730 and then goes to work around 1445 and then her first break is at 1630 and that is her snack time and then lunch break is at 9434-2250. Pt gets off work around 7477-6679. Told pt to eat a bedtime snack before 2330 and check fasting level at 0730 when she wakes up. To try to plan meals and snack around work. To try to eat breakfast and lunch before work. Use the first break as a snack and then dinner during her last break and then bedtime snack when she gets off work and is on her way home. Told pt she can go online to [employer] for meal options or to look up low carb meal recipes online for ideas as well. Pt picked up glucometer , but has not started checking any of her sugars yet. Told pt to start checking BS QID and adjusting diet to follow low carb diet to try to keep BS within normal range. Pt aware if sugars aren't controlled by diet we would discuss starting insulin. Went over NST schedule with pt and importance of keeping these appts and checking BS for her and baby's health. Pt will bring in sugars to 05/21 appt. Pts questions were answered and pt verbalized understand ing. IRVIN fitzgerald [id number] Ramona Sawyer [place] [address] [address] 05/21/2022 16:13:59 05/21/2022 17:03:22 Gestational diabetes mellitus class A1 [id number] O24.410 O43.119 Z3A.30 Diet teaching completed with pt over the phone. Went over ideal ranges for FBS and pp BS. Went over carb counting and carb ranges for each meal/snack . Gave ideas for foods to eat for meals/snac ks. Discussed drink options and to avoid soda and juice. Pt states she drinks a lot of Pepsi and Go Tea, pt will cut out Pepsi and will look up total carbs of the tea to see if she is able to drink this or not. Pt states her meal times are off and she doesn't eat breakfast much. Pt wakes for the day around 0730 and then goes to work around 1445 and then her first break is at 1630 and that is her snack time and then lunch break is at [phone]. Pt gets off work around 1757-7289. Told pt to eat a bedtime snack before 2330 and check fasting level at 0730 when she wakes up. To try to plan meals and snack around work. To try to eat breakfast and lunch before work. Use the first break as a snack and then dinner during her last break and then bedtime snack when she gets off work and is on her way home. Told pt she can go online to [employer] for meal options or to look up low carb meal recipes online for ideas as well. Pt picked up glucometer , but has not started checking any of her sugars yet. Told pt to start checking BS QID and adjusting diet to follow low carb diet to try to keep BS within normal range. Pt aware if sugars aren't controlled by diet we would discuss starting insulin. Went over NST schedule with pt and importance of keeping these appts and checking BS for her and baby's health. Pt will bring in sugars to 05/21 appt. Pts questions were answered and pt verbalized understand ing. IRVIN fitzgerald [id number] Alessandra silverio [place] [address],[place] [address] 06/03/2022 11:30:25 06/03/2022 14:53:56 Gestational diabetes mellitus class A2 85681858 O24.414 Insulin teaching completed. Pt instructed on subcutaneo us injection and injection sites. Pt instructed on cleaning vial top and injection site. Pt instructed on how to draw up and administer insulin. Pt instructed on how to read insulin syringe. Pt verbalized understand ing. Demonstrat ion completed and return demonstrat ion from patient correct. Pt has no questions at this time and will keep her routine OB appt and testing appts tomorrow. Alessandra silverio, [place] [id number] [facility] [address],[place] [address] 06/04/2022 10:23:29 06/04/2022 11:06:47 Gestational diabetes mellitus 76114131 O24.419 [id number] Radha López [place] [address],[place] [address] 06/04/2022 10:23:50 06/04/2022 12:40:02 Gestational diabetes mellitus class A1 97280047 O24.410 O43.119 Z3A.30 [id number] Harry Kang MD [place] [address],[place] [address] 06/04/2022 10:24:18 06/04/2022 12:10:17 Routine care 411635479 Z34.82 [id number] Ramona Sawyer [place] [address],[place] [address] 06/11/2022 10:28:51 06/11/2022 11:10:06 Gestational diabetes mellitus class A1 61382399 O24.410 O43.119 Z3A.33 [id number] Radha López [place] [address],[place] [address] 06/11/2022 10:29:05 06/11/2022 12:31:20 Gestational diabetes mellitus class A2 62036459 O24.414 [id number] Harry Kang MD [place] [address],[place] [address] 06/11/2022 10:29:18 06/11/2022 12:31:00 Routine care 231748256 Z34.82 [id number] [facility] [address],[place] [address] 06/18/2022 15:57:01 06/18/2022 16:38:38 Gestational diabetes mellitus 59952826 O24.419 [id number] Ramona [facility] [address],[place] [address] 06/18/2022 15:57:17 06/19/2022 14:24:40 Gestational diabetes mellitus class A1 58099468 O24.410 O43.119 Z3A.34 [id number] Harry Kang MD [place] [address],[place] [address] 06/18/2022 15:57:29 06/18/2022 18:21:16 Routine care 534262356 Z34.82 [id number] [facility] [address],[place] [address] 06/25/2022 09:59:38 06/25/2022 11:03:19 Gestational diabetes mellitus class A1 11678681 O24.410 O43.119 Z3A.34 [id number] Harry Kang MD [place] [address],[place] [address] 06/25/2022 10:00:05 06/25/2022 21:47:20 Routine care 829196018 Z34.82 [id number] Alis Leon [place] [address],[place] [address] 07/02/2022 09:49:55 07/02/2022 10:34:29 Gestational diabetes mellitus 30483539 O24.419 [id number] Ramona Sawyer [place] [address],[place] [address] 07/02/2022 09:50:14 07/02/2022 11:11:11 Gestational diabetes mellitus class A1 32158393 O24.410 O43.119 O16.9 Z3A.36 [id number] Harry Kang MD [place] [address],[place] [address] 07/02/2022 09:51:20 07/03/2022 12:51:16 Routine care 200590233 Z34.82 [id number] Harry Kang MD [place] [address],[place] [address] 07/06/2022 09:44:53 07/06/2022 10:36:35 Routine care 685449978 Z34.82 [id number] Harry Kang MD [place] [address],[place] [address] 08/04/2022 12:47:22 08/04/2022 13:33:09 Female sterilization 78109902 Z30.2 care 44283216 8 Z39.2 this patient is a 41-year-ol d multiple with a recent vaginal . She is doing well. She is bottle feeding, she is little bit of bleeding still. Her baby is doing well. She does not want contracept ion. She wants female sterilizat ion. She has not had sex. To schedule salpingect danny. [id number] Harry Kang MD [place] [address],[place] [address] 08/24/2022 12:19:39 08/26/2022 14:37:18 Female sterilization 92018221 Z30.2 41-year-ol d female who desires female sterilizat ion. We Agreed to perform laparoscop ic bilateral salpingect danny. she understand s the risks, benefits, and alternativ es. She has completed the informed consent process and is ready to proceed. [id number] Harry Kang MD [place] [address],[place] [address] 09/01/2022 14:42:16 09/01/2022 15:48:56 Contraception care management 433520620 Z30.9 this patient is a 41-year-ol d female, multiple, who presents for follow-up on contracept ion. She no showed on her tubal ligation. But she it would like to discuss contracept ion. We talked about combined oral contracept blaine pills which she has taken the past. I feel like this too much risk at her age and her weight. She has class 2 obesity. Almost class 3. I recommende d Mirena IUD. Talked about Mirena IUD in detail. We spent 20 minutes face-to-fa ce. More than 50% was counseling we agreed to insert Mirena IUD. She will return as soon as possible. She has not had sex in 3 months. [id number] Harry Kang MD [place] [address],[place] [address] 02/19/2023 09:47:37 02/19/2023 11:10:01 Gynecologic examination 63263094 Z01.419 Annual gynecologi vishal exam performed. Patient will come back in a year unless there are new symptoms. Suggest Calcium with Vitamin D if not eating in diet. Patient advised to get annual flu shot. Recommend yearly physicals and preform monthly breast exams. Genetic testing is available for patients with family history of cancer. Engage in safe sexual practices, use condoms. Encouraged to have daily exercise. Avoid tobacco and illicit drugs, moderation of alcohol. If BMI greater than 25 dietary consult advised. If you have any questions please call or email. Mammogram - ordered Colonoscop y - na Bone Density - na Cholestero l - ktoday Pap - today [id number] Harry Kang MD [place] [address],[facility] [place] [address] 09/24/2023 09:50:17 09/25/2023 17:29:33 Female sterilization 49179831 Z30.2 This patient presents for female sterilizat ion. The patient desires sterilizat ion. She is certain that she no longer wants to be fertile. We discussed sterilizat ion in detail. I described the procedure to the patient in detail. We discussed alternativ es. The patient knows they are highly effective reversible options. She understand s that the salpingect danny is permanent. We discussed failure rate. She understand failure rate approaches 0 with the salpingect danny. She understand s that there is no reversing salpingect danny.n. . She return for informed consent process. Her surgery will be scheduled. We spent more than 40 minutes face-to-fa ce. We discussed the surgery in detail. We discussed risk, benefits, and alternativ es. More than 50% of our meeting was counseling . We made a decision to perform surgery. [id number] MADIE Zuleta [place] [address] [address] 12/09/2023 14:19:18 12/09/2023 16:32:08 Vaginitis 71928045 N76.0 suspect BVvaginiti s panel sentdeclin ed STI screenrx sent, r/b/a reviewed. Fluconazol e sent in case of secondary yeastvulva r care guidelines discussedB P precaution s reviewed, encouraged PCP f/u Time spent in visit is a total of 22 mins with at least 50% of visit consisting of counseling and review of plan of care. [id number] MADIE Zuleta [place] [address] [address] 08/23/2024 10:25:21 08/23/2024 11:39:54 Gynecologic examination 39748576 Z01.419 WWEBC - withdrawal . Desires permeant sterlizati on, can schedule consult with Dr. Sharp - done todaySTI screen - gc/ct/tric h testing added to pap per requestHIV /Hep B&C/Syphil is testing ordered per pt requestMam mogram - orderedCol on cancer screening - n/aRoutine labs - PCPBP precaution s discussedR TC in 1 yr or sooner if needed Suggested Calcium with Vitamin D daily. Patient advised to get an annual flu shot in the fall and she could obtain at local pharmacy. Also to obtain TDap vaccinatio n if you have not had one in the last 10 years. Recommend yearly mammograms . Encouraged monthly self breast exams. Encourage safe sexual practices, to use condoms and limit partners if not already in a monogamous relationsh ip. Engage in regular exercise. Avoid tobacco and illicit drugs. This lifestyle behavior pattern will lead to less health conditions and longer life span. If BMI greater than 25 dietary consult advised. All questions have been answered. Venereal d isease screening 294468850 Z11.3 Sexually t ransmitted infectious disease 5978092 A64 Screening for malignant neoplasm of breast 879007961 Z12.39 [id number] Harry Kang MD [place] [address] [address] 09/04/2024 10:08:57 09/04/2024 13:38:09 Female sterilization 49394353 Z30.2 This patient presents for female sterilizat ion. The patient desires tubal ligation. She is certain that she no longer wants to be fertile. We discussed sterilizat ion in detail. I described the procedure to the patient in detail. I informed her that we remove the tubes entirely in a. We discussed alternativ es. The patient knows they are highly effective reversible options. She understand s that the Salpingect danny n is permanent. We discussed failure rate. She understand s there is reported failure rate to salpingect danny.. As described salpingect danny and removal of the entire tube. I discussed the reduction in ovarian cancer risk. The patient understand s and is ready to proceed with laparoscop ic bilateral Salpingect danny. She understand s the fallopian tubes will be removed. She understand s risks, benefits, and alternativ es. She has completed the informed consent process was ready to proceed Health Concerns Section Related Observation LastModified by Organization Detai ls LastModified Time None Recorded Concern Status LastModified by Organization Details LastModified Time None Recorded Advance Directives Directive N: Payers Encounter Date Sequence Insurance Name Policy Number Policy Lopez Covered Member ID Lopez Member ID Guarantor Name 02/19/2023 2 [place] [facility] Charis Castro [id number] Charis Castro 02/19/2023 1 [place] [id number] Charis Castro [id number] Charis Castro 09/24/2023 2 [place] [facility] Charis Castro [id number] [facility] 12/09/2023 2 [place] [facility] [id number] [facility] 12/09/2023 1 [place] [id number] 7 Charis Castro [id number] Charis Castro 08/23/2024 2 [place] [facility] [id number] [facility] 08/23/2024 1 [place] [id number] Charis Castro [id number] [facility] 09/04/2024 2 [place] [facility] [id number] [facility] 09/04/2024 1 [place] [id number] Charis Castro [id number] [facility] Notes Date Note Type Note Provider Name and Address Organization Details Recorded Time 02/19/2023 text/html Annual GYNReport ed bypatient.History:n o gynecologic complaints Menstrual cycle:Normal menses Urinary symptoms:No hematuria Vulva:No genital lesion Vagina:Normal vaginal discharge Breast:No breast pain; No breast lump Current Contraception: control not practiced Psychological symptoms:No depression; No anxiety Preventive measures:Encourage self breast examination; Encourage regular exercise Harry Kang MD [address], [place], [address], [facility] 02/19/2023 10:47:22 09/24/2023 text/html This patient presents for female sterilization. The patient desires sterilization. She is certain that she no longer wants to be fertile. We discussed sterilization in detail. I described the procedure to the patient in detail. We discussed alternatives. The patient knows they are highly effective reversible options. She understands that the salpingectomy is permanent. We discussed failure rate. She understand failure rate approaches 0 with the salpingectomy. She understands that there is no reversing salpingectomy.n. . She return for informed consent process. Her surgery will be scheduled. We spent more than 40 minutes [id number]. We discussed the surgery in detail. We discussed risk, benefits, and alternatives. More than 50% of our meeting was counseling. We made a decision to perform surgery. Harry Kang MD [address], [place], [address], [facility] 09/24/2023 16:41:14 12/09/2023 text/html 43yopresents for vaginal d/c and odorsymptoms x 1 weekfishy odor, clear/white dischargeno new partnersLMP 12/02/2023 MADIE Zuleta [address], [place], [address], [facility] 12/09/2023 16:22:06 08/23/2024 text/html Annual GYNReport ed bypatient.Menstrual cycle:Normal menses Urinary symptoms:No hematuria; No incontinence Vulva:No genital lesion Vagina:Normal vaginal discharge Breast:No breast pain; No breast lump; No nipple discharge Current Contraception:withd valentina Sexual complaints:No sexual complaints; No pain during intercourse; Normal libido Menopausal Symptoms:No menopausal symptoms; Normal vaginal lubrication Psychological symptoms:No depression; No anxiety; No PMDD Preventive measures:Encourage self breast examination; Encourage regular exercise; Encourage no tobacco use; Encourage regular mammograms starting age 40Notes:43yo wweBC - withdrawal. Desires permanent sterlization, h/o right salpingectomy s/p ectopic in 2017last pap 02/2023 : nilm, HPV (-)would like STI testing today MADIE Zuleta [address], [place], [address], [facility] 08/23/2024 11:27:32 09/04/2024 text/html This patient presents for female sterilization. The patient desires tubal ligation. She is certain that she no longer wants to be fertile. We discussed sterilization in detail. I described the procedure to the patient in detail. I informed her that we remove the tubes entirely in a. We discussed alternatives. The patient knows they are highly effective reversible options. She understands that the Salpingectomy n is permanent. We discussed failure rate. She understands there is reported failure rate to salpingectomy.. As described salpingectomy and removal of the entire tube. I discussed the reduction in ovarian cancer risk. The patient understands and is ready to proceed with laparoscopic bilateral Salpingectomy. She understands the fallopian tubes will be removed. She understands risks, benefits, and alternatives. She has completed the informed consent process was ready to proceed Harry Kang MD [address], [place], [address], [facility] 09/04/2024 13:10:09 OBGyn Episode Ob Episode Information Episode Created Date Number of Fetuses Patient Bloodtype Patient rh Status Prepregnancy Weight lbs Domestic Partner Domestic Partner Phone Father Name Check Inspector Status 07/12/19 21 1 CLOSED Fetus Data First Name Last Name Admitted to NICU Weight (g) Sex Living Outcome Pediatric Complications Fetus ID Race Codes Race Delivery Type Ectopic [id number] Hamlet Calculation Initial Hamlet Date Initial Exam Date Initial Exam Provider Initial Ultrasound Date Last Menstrual Period Date Ultra Sound Weeks Gestation 0 Eighteen To Twenty Week Hamlet Update Ultra Sound Date Fundal Height At Umbil Quickening Date Ultra Sound Latest Weeks Gestation Final Hamlet Confirmed By Final Hamlet Confirmed Date Final Hamlet Date Ultra Sound Latest Days Gestation 0 0 Menstrual History Last Menstrual Date Menses Monthly On Bcp Conception Prior Menses Frequency Hcg Plus Date Menarche Onset Age Delivery Information Delivery Date Delivery Type Labor Anesthesia Weeks Gestation Incision Type Labor Labor Length Hrs Delivered By Post Complications Tubal Sterilization Discharge Date Comments 7 Discharge Information Feeding Method Contraceptive Method Maternal HG B and HCT Levels Ob Episode Information Episode Created Date Number of Fetuses Patient Bloodtype Patient rh Status Prepregnancy Weight lbs Domestic Partner Domestic Partner Phone Father Name Check Inspector Status 07/12/19 21 1 CLOSED Fetus Data First Name Last Name Admitted to NICU Weight (g) Sex Living Outcome Pediatric Complications Fetus ID Race Codes Race Delivery Type 4195.72 6 F Full Term 7375 Vaginal Delivery Hamlet Calculation Initial Hamlet Date Initial Exam Date Initial Exam Provider Initial Ultrasound Date Last Menstrual Period Date Ultra Sound Weeks Gestation 0 Eighteen To Twenty Week Hamlet Update Ultra Sound Date Fundal Height At Umbil Quickening Date Ultra Sound Latest Weeks Gestation Final Hamlet Confirmed By Final Hamlet Confirmed Date Final Hamlet Date Ultra Sound Latest Days Gestation 0 0 Menstrual History Last Menstrual Date Menses Monthly On Bcp Conception Prior Menses Frequency Hcg Plus Date Menarche Onset Age Delivery Information Delivery Date Delivery Type Labor Anesthesia Weeks Gestation Incision Type Labor Labor Length Hrs Delivered By Post Complications Tubal Sterilization Discharge Date Comments 8 37 gbs + Discharge Information Feeding Method Contraceptive Method Maternal HG B and HCT Levels Ob Episode Information Episode Created Date Number of Fetuses Patient Bloodtype Patient rh Status Prepregnancy Weight lbs Domestic Partner Domestic Partner Phone Father Name Check Inspector Status 07/12/19 21 1 CLOSED Fetus Data First Name Last Name Admitted to NICU Weight (g) Sex Living Outcome Pediatric Complications Fetus ID Race Codes Race Delivery Type , Spontane ous 7374 Hamlet Calculation Initial Hamlet Date Initial Exam Date Initial Exam Provider Initial Ultrasound Date Last Menstrual Period Date Ultra Sound Weeks Gestation 0 Eighteen To Twenty Week Hamlet Update Ultra Sound Date Fundal Height At Umbil Quickening Date Ultra Sound Latest Weeks Gestation Final Hamlet Confirmed By Final Hamlet Confirmed Date Final Hamlet Date Ultra Sound Latest Days Gestation 0 0 Menstrual History Last Menstrual Date Menses Monthly On Bcp Conception Prior Menses Frequency Hcg Plus Date Menarche Onset Age Delivery Information Delivery Date Delivery Type Labor Anesthesia Weeks Gestation Incision Type Labor Labor Length Hrs Delivered By Post Complications Tubal Sterilization Discharge Date Comments 6 Discharge Information Feeding Method Contraceptive Method Maternal HG B and HCT Levels Ob Episode Information Episode Created Date Number of Fetuses Patient Bloodtype Patient rh Status Prepregnancy Weight lbs Domestic Partner Domestic Partner Phone Father Name Check Inspector Status 07/12/19 21 1 CLOSED Fetus Data First Name Last Name Admitted to NICU Weight (g) Sex Living Outcome Pediatric Complications Fetus ID Race Codes Race Delivery Type 2834.95 F Full Term 7378 V Back Hamlet Calculation Initial Hamlet Date Initial Exam Date Initial Exam Provider Initial Ultrasound Date Last Menstrual Period Date Ultra Sound Weeks Gestation 0 Eighteen To Twenty Week Hamlet Update Ultra Sound Date Fundal Height At Umbil Quickening Date Ultra Sound Latest Weeks Gestation Final Hamlet Confirmed By Final Hamlet Confirmed Date Final Hamlet Date Ultra Sound Latest Days Gestation 0 0 Menstrual History Last Menstrual Date Menses Monthly On Bcp Conception Prior Menses Frequency Hcg Plus Date Menarche Onset Age Delivery Information Delivery Date Delivery Type Labor Anesthesia Weeks Gestation Incision Type Labor Labor Length Hrs Delivered By Post Complications Tubal Sterilization Discharge Date Comments 9 37 Discharge Information Feeding Method Contraceptive Method Maternal HG B and HCT Levels Ob Episode Information Episode Created Date Number of Fetuses Patient Bloodtype Patient rh Status Prepregnancy Weight lbs Domestic Partner Domestic Partner Phone Father Name Check Inspector Status 07/12/19 21 1 CLOSED Fetus Data First Name Last Name Admitted to NICU Weight (g) Sex Living Outcome Pediatric Complications Fetus ID Race Codes Race Delivery Type 3203.26 6704 M Full Term 7376 Primary Hamlet Calculation Initial Hamlet Date Initial Exam Date Initial Exam Provider Initial Ultrasound Date Last Menstrual Period Date Ultra Sound Weeks Gestation 0 Eighteen To Twenty Week Hamlet Update Ultra Sound Date Fundal Height At Umbil Quickening Date Ultra Sound Latest Weeks Gestation Final Hamlet Confirmed By Final Hamlet Confirmed Date Final Hamlet Date Ultra Sound Latest Days Gestation 0 0 Menstrual History Last Menstrual Date Menses Monthly On Bcp Conception Prior Menses Frequency Hcg Plus Date Menarche Onset Age Delivery Information Delivery Date Delivery Type Labor Anesthesia Weeks Gestation Incision Type Labor Labor Length Hrs Delivered By Post Complications Tubal Sterilization Discharge Date Comments 1 37 Emil FTP, [place] Discharge Information Feeding Method Contraceptive Method Maternal HG B and HCT Levels Ob Episode Information Episode Created Date Number of Fetuses Patient Bloodtype Patient rh Status Prepregnancy Weight lbs Domestic Partner Domestic Partner Phone Father Name Check Inspector Status 09/06/19 22 1 CLOSED Fetus Data First Name Last Name Admitted to NICU Weight (g) Sex Living Outcome Pediatric Complications Fetus ID Race Codes Race Delivery Type , [place] ous [id number] Hamlet Calculation Initial Hamlet Date Initial Exam Date Initial Exam Provider Initial Ultrasound Date Last Menstrual Period Date Ultra Sound Weeks Gestation 0 Eighteen To Twenty Week Hamlet Update Ultra Sound Date Fundal Height At Umbil Quickening Date Ultra Sound Latest Weeks Gestation Final Hamlet Confirmed By Final Hamlet Confirmed Date Final Hamlet Date Ultra Sound Latest Days Gestation 0 0 Menstrual History Last Menstrual Date Menses Monthly On Bcp Conception Prior Menses Frequency Hcg Plus Date Menarche Onset Age Delivery Information Delivery Date Delivery Type Labor Anesthesia Weeks Gestation Incision Type Labor Labor Length Hrs Delivered By Post Complications Tubal Sterilization Discharge Date Comments 1 Discharge Information Feeding Method Contraceptive Method Maternal HG B and HCT Levels Ob Episode Information Episode Created Date Number of Fetuses Patient Bloodtype Patient rh Status Prepregnancy Weight lbs Domestic Partner Domestic Partner Phone Father Name Check Inspector Status 01/16/20 22 1 A Positive 224 CLOSED Fetus Data First Name Last Name Admitted to NICU Weight (g) Sex Living Outcome Pediatric Complications Fetus ID Race Codes Race Delivery Type 3061.74 6 M true Full Term [id number] Vaginal Delivery Problems Problem Notes PER 04/22 MFM CONSULT NOTE: A nemia panel, 1x/wk NST/BPP @ 34 wks, and growth u/s @ 32 & 36 [id number] 5.9 - 20wk 1hr [id number] MFM [place] 04/22/22 0900 U/S & OV Problem Name Start Date End Date Resolution Snomed Code Not e Gestational diabetes mellitus [id number] BS QID, antenat al testing. Starting 5u NPH @ HS 06/02/22 -induced hypertension [id number] h/o in 3rd trim maurice of last delivery - delivered vaginal a fter in her last . 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 Level II on showed no circumvallate placents Female sterilization [id number] Uterine leiomyoma [id number] Lo wer uterine segment Hamlet Calculation Initial Hamlet Date Initial Exam Date Initial Exam Provider Initial Ultrasound Date Last Menstrual Period Date Ultra Sound Weeks Gestation 07/23/2022 01/15/2022 12/15/2021 10/20/2021 8 Eighteen To Twenty Week Hamlet Update Ultra Sound Date Fundal Height At Umbil Quickening Date Ultra Sound Latest Weeks Gestation Final Hamlet Confirmed By Final Hamlet Confirmed Date Final Hamlet Date Ultra Sound Latest Days Gestation 0 [id number] 01/16/2022 07/27/19 23 0 Pre- Flowsheet Flowsheet Date 01/15/2022 Fitzgerald Score Blood Edema Fundus Height Fundus Units Glucose Ketones Leukocytes Nitrite Labor Signs Protein Cervic Dilation Cervic Effacement Cervic Station Type Weight in lbs Pre/Post Dialysis Refused BP Diastolic BP Location Tested BP Systolic BP Type Fetus Heart Rate Present Fetus Movement Comments Flowsheet Date 01/15/2022 Fitzgerald Score Blood Edema Fundus Height Fundus Units Glucose Ketones Leukocytes Nitrite Labor Signs Protein Cervic Dilation Cervic Effacement Cervic Station Type Weight in lbs Pre/Post Dialysis Refused Weight 227.731496905173 BP Diastolic BP Location Tested BP Systolic BP Type 86 R arm 148 sitting Fetus Heart Rate Present Fetus Movement Comments 12 week ultrasound today. Th is patient is a 6 para 3033 at 13 weeks gestation who presents for initial care. She is vaccinated for COVID. She is given other vaccine recommendations. She has a history -induced hypertension in her last . She had a late in the 3rd trimester. She also has a history of a delivery with a successful afterward. She has no complaints today. She is doing well. We reviewed care in detail. She has an unremarkable medical, surgical, social history. Flowsheet Date 02/13/2022 Fitzgerald Score Blood Edema Fundus Height Fundus Units Glucose Ketones Leukocytes Nitrite Labor Signs Protein Cervic Dilation Cervic Effacement Cervic Station neg none none trace Type Weight in lbs Pre/Post Dialysis Refused Weight 231.607339107591 BP Diastolic BP Location Tested BP Systolic BP Type 83 123 Fetus Heart Rate Present A 152 Present Fetus Movement A Yes Comments doing well no complaints , p keven anatomy in 4 weeks Flowsheet Date 03/19/2022 Fitzgerald Score Blood Edema Fundus Height Fundus Units Glucose Ketones Leukocytes Nitrite Labor Signs Protein Cervic Dilation Cervic Effacement Cervic Station Type Weight in lbs Pre/Post Dialysis Refused BP Diastolic BP Location Tested BP Systolic BP Type Fetus Heart Rate Present Fetus Movement Comments Flowsheet Date 03/19/2022 Fitzgerald Score Blood Edema Fundus Height Fundus Units Glucose Ketones Leukocytes Nitrite Labor Signs Protein Cervic Dilation Cervic Effacement Cervic Station Type Weight in lbs Pre/Post Dialysis Refused Weight 237.550936582399 BP Diastolic BP Location Tested BP Systolic BP Type 82 R arm 130 sitting Fetus Heart Rate Present Fetus Movement Comments incomplete anatomy today, pa rtial previa, nuchal cord x2, circumvallate placenta, to have MFM consult. Flowsheet Date 04/16/2022 Fitzgerald Score Blood Edema Fundus Height Fundus Units Glucose Ketones Leukocytes Nitrite Labor Signs Protein Cervic Dilation Cervic Effacement Cervic Station 25 Type Weight in lbs Pre/Post Dialysis Refused Weight 241.67028652639 BP Diastolic BP Location Tested BP Systolic BP Type Fetus Heart Rate Present A 145 Fetus Movement Comments MFM consult pending next wee k, no complaints today, Flowsheet Date 05/07/2022 Fitzgerald Score Blood Edema Fundus Height Fundus Units Glucose Ketones Leukocytes Nitrite Labor Signs Protein Cervic Dilation Cervic Effacement Cervic Station 29 Type Weight in lbs Pre/Post Dialysis Refused Weight 246.190502218164 BP Diastolic BP Location Tested BP Systolic BP Type 89 R arm 148 sitting Fetus Heart Rate Present A 136 Fetus Movement A Yes Comments Agreed to 3 hour glucose jose erance test tomorrow, has no time today for it. Growth ultrasound a couple of weeks. testing starts at 34 weeks. Flowsheet Date 05/11/2022 Fitzgerald Score Blood Edema Fundus Height Fundus Units Glucose Ketones Leukocytes Nitrite Labor Signs Protein Cervic Dilation Cervic Effacement Cervic Station Type Weight in lbs Pre/Post Dialysis Refused BP Diastolic BP Location Tested BP Systolic BP Type Fetus Heart Rate Present Fetus Movement Comments Flowsheet Date 05/19/2022 Fitzgerald Score Blood Edema Fundus Height Fundus Units Glucose Ketones Leukocytes Nitrite Labor Signs Protein Cervic Dilation Cervic Effacement Cervic Station Type Weight in lbs Pre/Post Dialysis Refused BP Diastolic BP Location Tested BP Systolic BP Type Fetus Heart Rate Present Fetus Movement Comments Flowsheet Date 05/21/2022 Fitzgerald Score Blood Edema Fundus Height Fundus Units Glucose Ketones Leukocytes Nitrite Labor Signs Protein Cervic Dilation Cervic Effacement Cervic Station Type Weight in lbs Pre/Post Dialysis Refused BP Diastolic BP Location Tested BP Systolic BP Type Fetus Heart Rate Present Fetus Movement Comments Flowsheet Date 06/03/2022 Fitzgerald Score Blood Edema Fundus Height Fundus Units Glucose Ketones Leukocytes Nitrite Labor Signs Protein Cervic Dilation Cervic Effacement Cervic Station Type Weight in lbs Pre/Post Dialysis Refused BP Diastolic BP Location Tested BP Systolic BP Type Fetus Heart Rate Present Fetus Movement Comments Flowsheet Date 06/04/2022 Fitzgerald Score Blood Edema Fundus Height Fundus Units Glucose Ketones Leukocytes Nitrite Labor Signs Protein Cervic Dilation Cervic Effacement Cervic Station Type Weight in lbs Pre/Post Dialysis Refused BP Diastolic BP Location Tested BP Systolic BP Type Fetus Heart Rate Present Fetus Movement Comments Flowsheet Date 06/04/2022 Fitzgerald Score Blood Edema Fundus Height Fundus Units Glucose Ketones Leukocytes Nitrite Labor Signs Protein Cervic Dilation Cervic Effacement Cervic Station Type Weight in lbs Pre/Post Dialysis Refused BP Diastolic BP Location Tested BP Systolic BP Type Fetus Heart Rate Present Fetus Movement Comments Flowsheet Date 06/04/2022 Fitzgerald Score Blood Edema Fundus Height Fundus Units Glucose Ketones Leukocytes Nitrite Labor Signs Protein Cervic Dilation Cervic Effacement Cervic Station 32 Type Weight in lbs Pre/Post Dialysis Refused Weight 242.168885573450 BP Diastolic BP Location Tested BP Systolic BP Type 85 R arm 138 sitting Fetus Heart Rate Present A 145 Fetus Movement Comments no complaints, normal BPP to day, wants tubal, to start insulin tonight, normal blood sugars with exception of her fasting a.m. sugars. Flowsheet Date 06/11/2022 Fitzgerald Score Blood Edema Fundus Height Fundus Units Glucose Ketones Leukocytes Nitrite Labor Signs Protein Cervic Dilation Cervic Effacement Cervic Station Type Weight in lbs Pre/Post Dialysis Refused BP Diastolic BP Location Tested BP Systolic BP Type Fetus Heart Rate Present Fetus Movement Comments Flowsheet Date 06/11/2022 Fitzgerald Score Blood Edema Fundus Height Fundus Units Glucose Ketones Leukocytes Nitrite Labor Signs Protein Cervic Dilation Cervic Effacement Cervic Station Type Weight in lbs Pre/Post Dialysis Refused BP Diastolic BP Location Tested BP Systolic BP Type Fetus Heart Rate Present Fetus Movement Comments Flowsheet Date 06/11/2022 Fitzgeradl Score Blood Edema Fundus Height Fundus Units Glucose Ketones Leukocytes Nitrite Labor Signs Protein Cervic Dilation Cervic Effacement Cervic Station 33 Type Weight in lbs Pre/Post Dialysis Refused Weight 244.572554214031 BP Diastolic BP Location Tested BP Systolic BP Type 90 R arm 137 sitting Fetus Heart Rate Present A 145 Fetus Movement A Yes Comments Forgot bs log at home, appea rs to have reasonable control. Reassuring testing. To be seen weekly Flowsheet Date 06/18/2022 Fitzgerald Score Blood Edema Fundus Height Fundus Units Glucose Ketones Leukocytes Nitrite Labor Signs Protein Cervic Dilation Cervic Effacement Cervic Station Type Weight in lbs Pre/Post Dialysis Refused BP Diastolic BP Location Tested BP Systolic BP Type Fetus Heart Rate Present Fetus Movement Comments Flowsheet Date 06/18/2022 Fitzgerald Score Blood Edema Fundus Height Fundus Units Glucose Ketones Leukocytes Nitrite Labor Signs Protein Cervic Dilation Cervic Effacement Cervic Station Type Weight in lbs Pre/Post Dialysis Refused BP Diastolic BP Location Tested BP Systolic BP Type Fetus Heart Rate Present Fetus Movement Comments Flowsheet Date 06/18/2022 Fitzgerald Score Blood Edema Fundus Height Fundus Units Glucose Ketones Leukocytes Nitrite Labor Signs Protein Cervic Dilation Cervic Effacement Cervic Station 34 Type Weight in lbs Pre/Post Dialysis Refused Weight 243.676409960251 BP Diastolic BP Location Tested BP Systolic BP Type 84 R arm 130 sitting Fetus Heart Rate Present A 143 Fetus Movement Comments normal growth, good blood mackey gars, normal BPP, normal JOSE LUIS Flowsheet Date 06/25/2022 Fitzgerald Score Blood Edema Fundus Height Fundus Units Glucose Ketones Leukocytes Nitrite Labor Signs Protein Cervic Dilation Cervic Effacement Cervic Station Type Weight in lbs Pre/Post Dialysis Refused BP Diastolic BP Location Tested BP Systolic BP Type Fetus Heart Rate Present Fetus Movement Comments Flowsheet Date 06/25/2022 Fitzgerald Score Blood Edema Fundus Height Fundus Units Glucose Ketones Leukocytes Nitrite Labor Signs Protein Cervic Dilation Cervic Effacement Cervic Station Type Weight in lbs Pre/Post Dialysis Refused Weight 243.669207150005 BP Diastolic BP Location Tested BP Systolic BP Type 93 R arm 152 sitting 86 L arm 148 sitting Fetus Heart Rate Present Fetus Movement Comments Patient to L&D for BP monito ring and BPP Flowsheet Date 07/02/2022 Fitzgerald Score Blood Edema Fundus Height Fundus Units Glucose Ketones Leukocytes Nitrite Labor Signs Protein Cervic Dilation Cervic Effacement Cervic Station Type Weight in lbs Pre/Post Dialysis Refused BP Diastolic BP Location Tested BP Systolic BP Type Fetus Heart Rate Present Fetus Movement Comments Flowsheet Date 07/02/2022 Fitzgerald Score Blood Edema Fundus Height Fundus Units Glucose Ketones Leukocytes Nitrite Labor Signs Protein Cervic Dilation Cervic Effacement Cervic Station Type Weight in lbs Pre/Post Dialysis Refused BP Diastolic BP Location Tested BP Systolic BP Type Fetus Heart Rate Present Fetus Movement Comments Flowsheet Date 07/02/2022 Fitzgerald Score Blood Edema Fundus Height Fundus Units Glucose Ketones Leukocytes Nitrite Labor Signs Protein Cervic Dilation Cervic Effacement Cervic Station 37 Type Weight in lbs Pre/Post Dialysis Refused Weight 242.694265454946 BP Diastolic BP Location Tested BP Systolic BP Type 86 R arm 136 sitting 94 L arm 142 sitting Fetus Heart Rate Present A 145 Fetus Movement Comments ultrasound for lower uterine segment fibroid in order to determine route delivery. Flowsheet Date 07/06/2022 Fitzgerald Score Blood Edema Fundus Height Fundus Units Glucose Ketones Leukocytes Nitrite Labor Signs Protein Cervic Dilation Cervic Effacement Cervic Station Type Weight in lbs Pre/Post Dialysis Refused Weight 245.707773515198 BP Diastolic BP Location Tested BP Systolic BP Type 87 L arm 147 sitting Fetus Heart Rate Present A 143 Fetus Movement Comments Repetitive painful contracti ons, sent to Labor and delivery, cervix is 3. Flowsheet Date 07/06/2022 Fitzgerald Score Blood Edema Fundus Height Fundus Units Glucose Ketones Leukocytes Nitrite Labor Signs Protein Cervic Dilation Cervic Effacement Cervic Station Type Weight in lbs Pre/Post Dialysis Refused BP Diastolic BP Location Tested BP Systolic BP Type Fetus Heart Rate Present Fetus Movement Comments Flowsheet Date 08/04/2022 Fitzgerald Score Blood Edema Fundus Height Fundus Units Glucose Ketones Leukocytes Nitrite Labor Signs Protein Cervic Dilation Cervic Effacement Cervic Station Type Weight in lbs Pre/Post Dialysis Refused Weight 229.208177382322 BP Diastolic BP Location Tested BP Systolic BP Type 98 R arm 156 sitting Fetus Heart Rate Present Fetus Movement Comments Flowsheet Date 08/24/2022 Fitzgerald Score Blood Edema Fundus Height Fundus Units Glucose Ketones Leukocytes Nitrite Labor Signs Protein Cervic Dilation Cervic Effacement Cervic Station Type Weight in lbs Pre/Post Dialysis Refused Weight 227.599457024080 BP Diastolic BP Location Tested BP Systolic BP Type 76 L arm 144 sitting Fetus Heart Rate Present Fetus Movement Comments Flowsheet Date 09/01/2022 Fitzgerald Score Blood Edema Fundus Height Fundus Units Glucose Ketones Leukocytes Nitrite Labor Signs Protein Cervic Dilation Cervic Effacement Cervic Station Type Weight in lbs Pre/Post Dialysis Refused Weight 227.948512653217 BP Diastolic BP Location Tested BP Systolic BP Type 86 R arm 144 sitting Fetus Heart Rate Present Fetus Movement Comments Menstrual History Last Menstrual Date Menses Monthly On Bcp Conception Prior Menses Frequency Hcg Plus Date Menarche Onset Age 0510/20/2021 Genetic Screening And Infection History Question Response Note Mental Retardation/Autism false Patient's Age Will Be 35 Yea rs Or Older At Estimated Date of Delivery false Thalassemia (Frisian, Ukrainian, Mediterranean, Or Background): MCV < 80 false Neural Tube Defect (Meningom yelocele, Spina Bifida, Or Anencephaly) false Congenital Heart Defect false Down Syndrome false Asad-Sachs (eg, Judaism, Cajun, Slovenian-[place]) f alse Forest Disease false Sickle Cell Disease Or Trait () false Hemophilia Or Other Blood Disorders false Muscular Dystrophy false Cystic Fibrosis false Nickie's Chorea false Intellectual Disability/Autism false If Yes, Was Person Tested For Fragile X? false Other Inherited Genetic Or Chromosomal Disorder false Maternal Metabolic Disorder (eg, Type 1 Diabetes , PKU) false Patient Or Baby's Father Had A Child With Defects Not Listed Above false Recurrent Loss, Or A Stillbirth false Medications (including Suppl ements, Vitamins, Herbs, OTC Drugs), Illicit/Recreational Drugs, Alcohol false If Yes, Agent(s) And Strength/Dosage false Any Other Genetic History false Live With Someone With TB Or Exposed To TB false Patient Or Partner Has History Of Genital Herpes false Rash Or Viral Illness Since Last Menstrual Perio d false History Of STD, Gonorrhea, Chlamydia, HPV, Syphi lis false Abn. Pap, history of Other Infection History false History of HIV false History of Hepatitis false Prior GBS-infected child false Hemoglobinopathy Or Carrier false Other Structural Defect false Recent Travel History Outside of Country false Delivery Information Delivery Date Delivery Type Labor Anesthesia Weeks Gestation Incision Type Labor Labor Length Hrs Delivered By Post Complications Tubal Sterilization Discharge Date Comments 3 Induce d Regional-Ep idural 37 false Harry Kang MD GHTN, GDM, circumval late placenta Discharge Information Feeding Method Contraceptive Method Maternal HG B and HCT Levels
--- OUTSIDE RECORDS SUMMARY | 2024-10-11 00:21 | XMS_ITS | Clinical Summary ---
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 This disclosure is being madepursuant to the Care Everywhere program and may not contain all information available regarding this patient. Last updated 18.[facility] Allergies Active Allergy Reactions Criticality Noted Date Comments Penicillins Rash Medium 07/08/2018 Medications * Be aware that medications may not be up to date on this document. Alwaysverify current medications with the patient. 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 Gender Identity Not on file Sexual Orientation Not on file Last Filed Vital Signs Vital Sign Reading Time Taken Comments Blood Pressure 123/83 04/22/2022 10:21 AM CDT Pulse 93 04/22/2022 10:21 AM CDT Temperature 36.8 C (98.2 F) 07/08/2018 11:34 AM TABLE GAMES DEALER Respiratory Rate 16 07/08/2018 11:34 AM TABLE GAMES DEALER Oxygen Saturation 97% 07/08/2018 11:34 AM TABLE GAMES DEALER Inhaled Oxygen Concentration - - Weight 103.4 kg (228 lb) 07/08/2018 11:34 AM TABLE GAMES DEALER Height 165.1 cm (5' 5 ) 07/08/2018 11:34 AM TABLE GAMES DEALER Body Mass Index 37.94 07/08/2018 11:34 AM TABLE GAMES DEALER Plan of Treatment Health Maintenance Due Date Last Done Comments LIPID TESTING 1980 MAMMOGRAM 1980 PAP SMEAR 1980 HIV SCREENING 11/14/1995 HEPATITIS C SCREENING 11/09/1998 DTAP/TDAP/TD VACCINES (1 - Tdap) 11/14/1999 HEPATITIS B VACCINE (1 of 3 - 19+ 3-dose series) 11/14/1999 COVID-19 VACCINE (3 - 2023-2 5 season) 2024 11/29/2020, 11/08/2020 DEPRESSION SCREENING 06/21/2024 INFLUENZA VACCINE (Season Ended) 2025 ZOSTER VACCINE (1 of 2) 2030 HIB VACCINE Aged Out No longer eligi ble based on patient's age to complete this topic HPV VACCINE Aged Out No longer eligi ble based on patient's age to complete this topic MENINGOCOCCAL (Group B) VACCINE SHARED DECISION-MAKING Aged Out No longer eligible based on patient's age to complete this topic MENINGOCOCCAL GROUPS A/C/Y/W VACCINE Aged Out No longer eligible b ased on patient's age to complete this topic PNEUMOCOCCAL VACCINE Aged Out No long er eligible based on patient's age to complete this topic Insurance AET MEDICAID - OUT OF [facility] MEDICAID - [place] [facility] MEDICAID Care Teams 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
--- OUTSIDE RECORDS SUMMARY | 2024-10-11 00:21 | XMS_ITS | Clinical Summary ---
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 Surgical History Surgery Date Site/Laterality Comments SECTION 06/21/2010 - 06/20/2011 SALPINGECTOMY 06/21/2016 - 06/20/2017 ectopic US ABDOMEN COMPLETE W LIVER DOPPLER (C) 06/16/2018 Right Medical History Medical History Date Comments Ectopic Miscarriage Family History Medical History Relation Name Comments Hypertension Other Relation Name Status Comments Other Social History Tobacco Use Types Packs/Day Years Used Date Smoking Tobacco: Never Smokeless Tobacco: Never Alcohol Use Standard Drinks/Week Comments No 0 (1 standard drink = 0.6 oz pur e alcohol) Personal Safety Answer Date Recorded Getting School Help Needed Not on file 08/21 Comments No Sex and Gender Information Value Date Recorded Sex Assigned at Not on file 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 Gender Identity Not on file Sexual Orientation Not on file Obstetrics History Para Term AB IAB SAB Ectopic Multiple Livin g Live Births 5 3 2 1 1 0 1 3 Date Outcome GA Total Labor Labor/2nd/3rd Weight Sex Type Anes PTL Magdalena A1 A5 Name Clin Term 2007 35w0 d 4.082 kg (9 lb) Vag-Sp ont 2011 Term 3.204 kg (7 lb 1 oz) CS-Uns pec 2017 Ectopic Comments 2017 Ectopic, salpingectomy G1 Vaginal G2 CS G3 Last Filed Vital Signs Vital Sign Reading Time Taken Comments Blood Pressure 100/60 05/26/2022 12:41 PM CUSTOMER SOLUTIONS ARCHITECT Pulse 99 05/26/2022 12:41 PM CUSTOMER SOLUTIONS ARCHITECT Temperature 36.8 C (98.2 F) 05/26/2022 12:41 PM CUSTOMER SOLUTIONS ARCHITECT Respiratory Rate 18 05/26/2022 12:41 PM CUSTOMER SOLUTIONS ARCHITECT Oxygen Saturation 97% 05/26/2022 12:41 PM CUSTOMER SOLUTIONS ARCHITECT Inhaled Oxygen Concentration - - Weight 107.5 kg (237 lb) 05/25/2022 3:24 PM CUSTOMER SOLUTIONS ARCHITECT Height 162.6 cm (5' 4 ) 05/25/2022 3:24 PM CUSTOMER SOLUTIONS ARCHITECT Body Mass Index 40.68 05/25/2022 3:24 PM CUSTOMER SOLUTIONS ARCHITECT Plan of Treatment Health Maintenance Due Date Last Done Comments Breast Cancer Screening-Mammogram 1980 Cervical Cancer Screening 1980 Depression Screening 1980 DTaP/Tdap/Td Vaccine (1 - Tdap) 11/14/1991 Varicella Vaccines (1 of 2 - 13+ 2-dose series) 1993 Hepatitis B Screening 1998 Regular Well Visit/Exam 18-64 1998 Influenza Vaccine (#1) 2024 Hepatitis C Screening Completed 07/25/2018 HPV Vaccines Aged Out No longer eligi ble based on patient's age to complete this topic Pneumococcal vaccine <65 Aged Out No longer eligible based on patient's age to complete this topic Procedures Procedure Name Priority Date/Time Associated Diagnosis Comments HEPATITIS C ANTIBODY Routine 07/25/2018 from Last 3 Months or Most Recently Relevant to Health Maintenance Results * Hepatitis C antibody (07/25/2018) SCRIBED HCV ab negative Blood specimen (specimen) Harry Kang MD LAB MICROBIOLOGY - GENERAL OR DERABLES Final Result from Last 3 Months or Most Recently Relevant to Health Maintenance Insurance [employer] ACCESS CHOICE Advance Directives For more information, please contact: [phone] * Full Code (Latest Code Status on File) Date Activated Date Inactivated Comments 05/25/2022 7:03 PM 05/26/2022 7:35 PM Care Teams Animal Attendant Relationship Specialty Start Date End Date No, Physician PCP - General 08/17/18
--- OUTSIDE RECORDS SUMMARY | 2024-10-11 00:21 | XMS_ITS | Clinical Summary ---
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 Gender Identity Not on file Sexual Orientation Not on file Plan of Treatment Health Maintenance Due Date Last Done Comments Hepatitis C Virus (HCV) Screening 1980 TdaP Immunization 1980 Hepatitis B Immunization (1 of 3 - 19+ 3-dose series) 11/14/1999 Pap Smear 2001 Cervical Cancer Screening (CCS) 2010 HPV/Cotest 2010 Discussion re Starting/Frequency of Mammograms 2020 Influenza Immunization (#1) 2024 SARS-COV-2 Immunization ( season) 2024 11/29/2020, 11/08/2020 Respiratory Syncytial Virus (RSV) Immunization (Adult) (1 - 1-dose 75+ series) 11/14/2055 Meningococcal Immunization (ACWY) Aged Out No longer eligible b ased on patient's age to complete this topic Pneumococcal Immunization Combined Aged Out No longer eligible b ased on patient's age to complete this topic Rotavirus Immunization Aged Out No lo nger eligible based on patient's age to complete this topic
--- OUTSIDE RECORDS SUMMARY | 2024-10-11 00:21 | XMS_ITS | Referral Summary ---
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 Gender Identity Not on file Sexual Orientation Not on file Last Filed Vital Signs Vital Sign Reading Time Taken Comments Blood Pressure 100/60 05/26/2022 12:41 PM ZIGZAGGER Pulse 99 05/26/2022 12:41 PM ZIGZAGGER Temperature 36.8 C (98.2 F) 05/26/2022 12:41 PM ZIGZAGGER Respiratory Rate 18 05/26/2022 12:41 PM ZIGZAGGER Oxygen Saturation 97% 05/26/2022 12:41 PM ZIGZAGGER Inhaled Oxygen Concentration - - Weight 107.5 kg (237 lb) 05/25/2022 3:24 PM ZIGZAGGER Height 162.6 cm (5' 4 ) 05/25/2022 3:24 PM ZIGZAGGER Body Mass Index 40.68 05/25/2022 3:24 PM ZIGZAGGER Plan of Treatment Not on file Procedures Procedure Name Priority Date/Time Associated Diagnosis Comments HEPATITIS C ANTIBODY Routine 07/25/2018 from Last 3 Months or Most Recently Relevant to Health Maintenance Results * Hepatitis C antibody (07/25/2018) SCRIBED HCV ab negative Blood specimen (specimen) Harry Kang MD LAB MICROBIOLOGY - GENERAL OR DERABLES Final Result from Last 3 Months or Most Recently Relevant to Health Maintenance Insurance [employer] Member Subscriber Plan / Payer (Ef fective 2018-Present) Name:Charis Castro Relation to Subscriber:Self Name:Charis Castro Payer ID:[id number] Group ID:Not on file Type:MEDICAID [place] Address: [place] [id number] [employer]M ACCESS CHOICE Advance Directives For more information, please contact: [phone] * Full Code (Latest Code Status on File) Date Activated Date Inactivated Comments 05/25/2022 7:03 PM 05/26/2022 7:35 PM Care Teams Superintendent Of Schools Relationship Specialty Start Date End Date No, Physician PCP - General 08/17/18
--- NOTE | 2024-10-11 07:52 | P.PNAN_ITS ---
Anes - Initial Pre Proc Eval Procedure: Operation Date: 10/11/24 09:00 Proposed Procedures p Laparoscopic Bilateral Salpingectomy - Harry Kang MD Date/Time: 10/11/24 07:52 Surgeon: Harry Kang MD Pre Op Diagnosis: Female Serilization Patient Data Age: 43 Gender: F Height: 1.63 m Weight: 101.3 kg Last Vital Signs Temp 36.2 C L 10/11/24 07:39 Pulse 84 10/11/24 07:39 Resp 16 10/11/24 07:39 BP 130/93 H 10/11/24 07:39 Pulse Ox 100 10/11/24 07:39 O2 Del Method Room Air 10/11/24 07:39 Allergies Allergy/AdvReac Type Severity Reaction Status Date / Time Penicillins Allergy Intermediate swelling Verified 10/11/24 07:38 of mouth Home Medications ?Medication ?Instructions ?Recorded ?Confirmed ?Type No Home Medications 10/04/24 10/04/24 History Patient hx anesthesia problems: none Family hx anesthesia problems: none Results Review: All pre-operative results and documents have been reviewed as part of the pre- operative evaluation. [facility] Past Medical History Medical History History of ectopic History of spontaneous No active medical problems Surgical History Surgical History No pertinent past surgical history Family History Family History Father Hypertension Kidney failure Congestive heart failure Other No problems noted. Mother Diabetes mellitus Social History Social History Years smoked: 2 Smoking status: Current every day smoker Tobacco type: cigarettes Alcohol intake: current Alcohol use details: 2-3x per month Substance use: never Last use: 07/05/21 Lack of Transportation: No Lack of Food: Never True Current Housing: I Have Housing Concerned About Future Housing: No Difficulty Paying Gas/Electric Bills: No Difficulty Paying for Meds: No Currently Unemployed: No Education: High School Diploma/GED Difficulty w/ Childcare or Family Care: No Living arrangements: with family Spiritual care concerns: No Anes - Eval Final PreProcedure Day of Procedure 10/11/24 07:52 Patient weight: obese Heart: regular rate and rhythm Lungs: clear to auscultation Airway: Mallampati scale class II Neurological: alert and oriented Last oral intake: >/= 8 hours ASA classification: II Emergent: no Anesthetic plan: proceed Anesthesia type and monitoring: general ETT and standard monitoring Results Review: All pre-operative results and documents have been reviewed as part of the pre- operative evaluation. Informed Consent: The patient's anesthetic plan and its attendant risks and benefits were discussed with the patient/family/POA. Questions were solicited and answers provided to the satisfaction of the patient/family/POA.
[2024-10-11 08:00] LABS: BEDSIDEPREGUCG Negative (Negative)
[2024-10-11] MEDS: LACTATED RINGERS 1,000 ML 30 ML IV CONT (08:10)
[2024-10-11] MEDS: ACETAMINOPHEN 500 MG TABLET 1000 MG PO (08:15)
[2024-10-11] MEDS: KETOROLAC 15 MG/ML VIAL (*BKC) IV PUSH (08:16)
--- NOTE | 2024-10-11 08:46 | P.HP_ITS ---
H&P: HPI History of Present Illness Date/Time: 10/11/24 08:46 Chief Complaint: Unwanted fertility Narrative: This patient is a 43-year-old who desires female sterilization. We agreed to perform laparoscopic bilateral salpingectomy. She understands risks, benefits, and alternatives. She has completed the informed consent process is ready to proceed. The patient understands the details of the procedure. The procedure has been explained in detail. She understands the risks. She understands that injuries may occur that result in hospitalization, more surgery, and severe illness. She understands risk of hemorrhage and infection. She denies any chest pain or shortness of breath. She denies any nausea, vomiting, fever, chills. Review of Systems Review of Systems: All systems reviewed & are unremarkable except as noted in HPI and below Constitutional: Constitutional: Denies chills, Denies fatigue, Denies fever(s) and Denies weakness Eyes: Eyes: Denies blurry vision, Denies change in vision, Denies loss of pe ripheral vision, Denies loss of vision, Denies other visual disturbances and Denies eye pain ENT: Denies vertigo, Denies dizziness, Denies hearing loss, Denies mouth pain, Denies nasal obstruction, Denies neck mass and Denies neck pain Cardiovascular: Cardiovascular: Denies chest pain, Denies diaphoresis, Denies syncope, Denies leg edema and Denies dyspnea Respiratory: Respiratory: Denies chest congestion, Denies cough, Denies hemoptysis, Denies dyspnea and Denies wheezing Gastrointestinal: Gastrointestinal: Denies abdominal pain, Denies constipation, Denies diarrhea, Denies nausea and Denies vomiting Genitourinary: Genitourinary: Denies hematuria, Denies change in libido, Denies nocturia, Denies genital lesions, Denies flank pain and Denies urinary urgency Musculoskeletal: Musculoskeletal: Denies abnormal gait, Denies back pain, Denies myalgias, Denies arthralgias, Denies joint swelling, Denies muscle weakness and Denies neck pain Integumentary/Breasts: Skin/Breast: Denies swelling, Denies breast pain, Denies breast mass, Denies dry skin, Denies nipple discharge, Denies unusual bruising and Denies jaundice Neurologic: Denies Neuro-related abnormal movements, Denies Abnormal speech present, Denies abnormal gait, Denies behavioral changes, Denies confusion, Denies vertigo, Denies dizziness, Denies syncope, Denies loss of vision, Denies memory loss, Denies convulsions and Denies weakness Psychiatric: Psychiatric: Denies abnormal sleep pattern, Denies behavioral changes, Denies change in libido, Denies confusion, Denies depression, Denies anhedonia and Denies memory loss Endocrine: Endocrine: Reports no additional endocrine complaints, Denies change in libido and Denies fatigue Hematologic/Lymphatic: Hematologic/Lymphatic: Reports no additional hematologic/lymphatic complaints Allergic/Immunologic: Allergic/Immunologic: Reports no additional allergic/immunologic complaints and Denies wheezing PMFSH Past Medical History Medical History History of ectopic History of spontaneous No active medical problems Surgical History Surgical History No pertinent past surgical history Family History Family History Father Hypertension Kidney failure Congestive heart failure Other No problems noted. Mother Diabetes mellitus Social History Social History Years smoked: 2 Smoking status: Current every day smoker Tobacco type: cigarettes Alcohol intake: current Alcohol use details: 2-3x per month Substance use: never Last use: 07/05/21 Lack of Transportation: No Lack of Food: Never True Current Housing: I Have Housing Concerned About Future Housing: No Difficulty Paying Gas/Electric Bills: No Difficulty Paying for Meds: No Currently Unemployed: No Education: High School Diploma/GED Difficulty w/ Childcare or Family Care: No Living arrangements: with family Spiritual care concerns: No Meds Home Medications and Allergies Home Medications ?Medication ?Instructions ?Recorded ?Confirmed ?Type No Home Medications 10/04/24 10/04/24 History Allergies Allergy/AdvReac Type Severity Reaction Status Date / Time Penicillins Allergy Intermediate swelling Verified 10/11/24 07:38 of mouth Vital Signs Vital Signs - 24 hr 10/11/24 07:39 Temperature 97.2 F L Pulse Rate 84 Respiratory Rate 16 Blood Pressure 130/93 H Pulse Oximetry 100 Oxygen Delivery Room Air Exam Const: General: cooperative, healthy appearing, comfortable and no acute distress Orientation/consciousness: oriented to person, oriented to place and oriented to time HENMT: Head: normal to inspection Ears: external ears normal Face/Nose/Sinus: Normal external nose present and normal facial exam Face and sinus: normal facial exam Eyes: General: appearance normal, both eyes and all related structures Neck: Neck: normal visual inspection, trachea midline and supple Resp: Auscultation: clear to auscultation bilaterally, no crackles, no rales, no rhonchi and no wheezes Cardio: Rate: regular rate Rhythm: regular rhythm Heart sounds: no click, no murmurs and no rubs GI: GI Palp: No abdominal tenderness, No Soft to palpation, No Tenderness to palpation present (GI) and No Palpable mass present Auscultation: normal bowel sounds Skin: General skin exam: normal color and no rashes or lesions noted Neuro: General: oriented to person, oriented to place and oriented to time Extrem: General: normal to inspection, no joint enlargement, no clubbing, cyanosis or edema, no pedal edema and no calf tenderness Psych: Appearance: grossly normal Mental Status: mental status grossly normal Speech and movement: Normal speech and movement present Assessment and Plan Assessment and plan (1) Encounter for female sterilization procedure: Code(s): Z30.2 - Encounter for sterilization Status: Acute Plan This patient is a 43-year-old who desires female sterilization. We agreed to perform laparoscopic bilateral salpingectomy. She understands risks, benefits, and alternatives. She has completed the informed consent process is ready to proceed.
--- NOTE | 2024-10-11 08:48 | WPDHPUPDATE1 ---
History and Physical Update Update Date/Time: 10/11/24 08:48 History and Physical has been reviewed, including an updated exam of the patient. There are NO changes in the patient's condition. Risks, benefits, and alternatives have been discussed and questions answered. Patient agrees to proceed with procedure.
--- NOTE | 2024-10-11 09:40 | W.PM.PROC2 ---
Procedure Note - Detailed Date of Procedure 10/11/24 Pre-op Diagnosis Female Serilization Post-op Diagnosis Same Procedure Performed Laparoscopic bilateral salpingectomy Surgeon Harry Kang MD Anesthesia General Indications Unwanted fertility Findings Normal pelvic anatomy, absent right tube Description of Procedure The patient was taken the operating room. She was prepped and draped in the dorsal lithotomy position after induction of general anesthesia. A 5 mm skin incision was made in the left upper quadrant of the abdominal skin. A 5 mm trocar was inserted the intra-abdominal cavity under direct visualization of the scope. Pneumoperitoneum was achieved. A 5 mm trocar was inserted in the left lower quadrant identical fashion. A 5 mm infraumbilical trocar was inserted in identical fashion as well. The left fallopian tube were removed. This was done by using a LigaSure cautery. The mesosalpinx adjacent to the tube was cauterized transected with LigaSure. This was initiated in the area the ovary and in a stepwise fashion moved medially to the area of the cornu of the uterus. Once there the fallopian tube was cauterized and transected. The fallopian tubes were taken out through the left lower quadrant trocar site. The pneumoperitoneum was reduced. The trocars removed. The skin was closed with subcuticular 4 Monocryl and covered with Dermabond. She was taken to cover stable condition. Sponge lap and needle counts were correct x2. Estimated Blood Loss 5 Drains No Packing No Pathology Yes Complications No immediate complications Condition Stable Disposition PACU
[2024-10-11] MEDS: fentaNYL CITRATE INJ (*CRX) 100 MCG/2 ML VIAL 25 MCG IV PUSH ×4 (09:48→10:01)
[2024-10-11] MEDS: oxyCODONE HCL (*CRX) 5 MG TAB IR PO (10:35)
== END 2024-10-11 11:56 | disposition home or self-care (01) ==
PROVIDERS: Visit Provider Obstetrics & Gynecology
PROC: (CPT 49320; principal; 2024-10-11 09:00)
DX: Z30.2 Encounter for sterilization (principal); G89.18 Other acute postprocedural pain; F17.210 Nicotine dependence, cigarettes, uncomplicated; E66.9 Obesity, unspecified; Z68.38 Body mass index [BMI] 38.0-38.9, adult; Z82.49 Family history of ischemic heart disease and other diseases of the circulatory system
CPT/HCPCS: 58661; 88302; A9270; J1100; J1885; J2250; J2405; J2704; J3010; J7030; J7120